=== PATIENT | female | born 1940 | race African-American/Black ===

== ENCOUNTER 2016-11-03 08:41 | Inpatient (IN) ==
[2016-11-03] MEDS ORDERED: FUROSEMIDE 100 MG/10 ML VIAL IV STA (09:05)
[2016-11-03] MEDS ORDERED: cloNIDine 0.1 MG TABLET PO STA (09:05)
[2016-11-03] MEDS ORDERED: cloNIDine 0.1 MG TABLET ONE ×2 (09:20→09:27)
[2016-11-03] MEDS ORDERED: FUROSEMIDE 40 MG/4 ML VIAL ONE (09:20)
[2016-11-03 09:33] LABS: Basophils % 0.4 % (0.0-0.8); Eosinophils # 0.1 10*3/uL (0.0-0.87); Eosinophils % 1.5 % (0.00-10.9); Hemoglobin 12.9 GM/DL (12.0-16.0); Immature Granulocytes % 0.2 %; Immature Granulocytes Absolute 0.02 #; Lymphocytes # 2.2 10*3/uL (1.4-4.0); Lymphocytes % 26.8 % (21.3-54.2); Mean Corpuscular HGB Conc 32.3 GM/DL (32-36); Mean Corpuscular Hemoglobin 29 PG (27-34); Mean Corpuscular Volume 88.9 FL (87-102); Monocytes # 0.7 10*3/uL (0.11-0.8); Monocytes % 8.4 % (1.7-12.7); Neutrophils # 5.2 10*3/uL (1.4-7.4); Neutrophils % 62.7 % (38.7-73.9); Platelet Count 309 T/CUMM (130-400); Red Cell Distribution Width 15.4 % (9.3-17.3); White Blood Count 8.3 T/CUMM (4-12)
[2016-11-03 10:01] LABS: Albumin 3.9 G/DL (3.4-5.0); Bilirubin,Total 1.2 MG/DL (0.2-1.0); Calcium 10.1 MG/DL (8.5-10.1); Magnesium 2.3 MG/DL (1.8-2.4); Osmolality,Calculated 279.3 MOS/KG (273-304); Potassium 4.4 MMOL/L (3.5-5.1); Total Protein 7.2 G/DL (6.4-8.3); Troponin I Only 0.03 NG/ML (0.00-0.045)
--- NOTE | 2016-11-03 10:37 | Emergency Department Note ---
Hellen Sosa Hilary, am scribing for, and in the presence of, Fitz Morfin MD 09:13. Navjot Sosa Phillip K, MD, personally performed the services described in this documentation, ascribed by Iris Macedo in my presence, and it is both accurate and complete 036 . Arrival - Arrival Chief Complaint: Shortness of Breath Stated Complaint: sob,chest pain ED Nursing Triage Note: Pt c/o SOB x 3 days. Pt's daughter reports pt has not taken her regular medications in a year. Mode of Arrival: Wheelchair Limitations: No Limitations Source: Patient, RN Notes Reviewed Time Seen by Provider: 11/03/16 08:57 - History of Present Illness HPI Narrative: Pt is a 76 y/o female presenting to the ED with c/o SOB and chest pains which onset 3 days ago. Pt states that it is worse when she is laying down but still hurts when she is sitting up. She confirms chest pain, SOB, cough but denies fever, abdominal pain, vomiting, and diaphoresis. Pts daughter says she has not been taking her medication for a year. Onset (ago): day(s) Consistency: constant Quality: sharp Allergies/Adverse Reactions: Allergies Allergy/AdvReac Type Severity Reaction Status Date / Time No Known Allergies Allergy Unverified 08/10/15 01:42 Home Medications: Home Medications Medication Instructions Recorded Confirmed Type Aspirin EC Tab 81 mg PO DAILY tablet 07/20/15 11/03/16 Rx Amiodarone Tab [Cordarone Tab] 200 mg PO DAILY #30 tablet 08/11/15 11/03/16 Rx Apixaban [Eliquis] 5 mg PO BID #60 tablet 08/11/15 11/03/16 Rx Atorvastatin [Lipitor] 80 mg PO BEDTIME #60 tablet 08/11/15 11/03/16 Rx Losartan [Cozaar] 25 mg PO DAILY #60 tablet 08/11/15 11/03/16 Rx Omeprazole 20 mg PO DAILY #30 capsule 08/11/15 11/03/16 Rx Spironolactone [Aldactone] 12.5 mg PO DAILY #30 tablet 08/11/15 11/03/16 Rx Carvedilol [Coreg] 6.25 mg PO BID 11/03/16 11/03/16 History Furosemide Tab [Lasix Tab] 20 mg PO DAILY 11/03/16 11/03/16 History Lisinopril 2.5 mg PO DAILY 11/03/16 11/03/16 History Potassium Chloride 10 meq PO DAILY 11/03/16 11/03/16 History Review of System - Review of System 12 point system: reviewed and no additional remarkable complaints except as stated - Review of System Constitutional: Absent: diaphoresis, fever Respiratory: Present: cough Cardiovascular: Present: chest pain Gastrointestinal: Absent: abdominal pain, nausea, vomiting Musculoskeletal: Present: leg pain (Lower leg swelling) Medical,Surgical,& Family Hx - Medical History Cardio: History of: CHF, Hypertension, PVD (DVT LEFT LEG), Cardiovascular Problems (CHF) Neurology: History of: Cerebrovascular Accident No history of: Brain Aneurysm, Cerebral Hemorrhage, Cerebral Palsy, Parkinson 's Disease, Peripheral Neuropathy, Seizures, TIA, Vertigo HEENT: History of: Dental Problems (dentures upper) No history of: Eye Problem, Glaucoma Endocrine: No history of: Diabetes Mellitus (NIDDM) Rheumatology: No history of;: Gout, Rheumatoid Arthritis, Rheumatological Problems Renal: History of: Renal Failure Gastrointestinal: No history of: Gastrointestinal Bleed, Hemorrhoids, Hepatitis, Liver Problems , Pancreatitis, Ulcerative Colitis, Gastrointestinal Cancer, GI Problems Musculoskeletal: No history of: Back/Neck Problems, Degenerative Disk Disease Hematology: History of: Clotting Problems (left leg DVT (2 yrs ago)) Reproductive: History of: Breast Cancer (left) No history of: Ectopic - Surgical History Cardiac Surgeries: Patient Denies: Cardiac Surgery, Vascular Access Devices Neurologic Surgeries: Patient denies: Brain Aneurysm, Cerebral Hemorrhage, Neurologic Surgery HEENT Surgeries: Patient denies: Eye Surgery, Tonsilectomy & Adenoidectomy Abdominal Surgeries: Surgical HX of: Cholecystectomy Patient denies: Abdominal Surgery, Appendectomy, Colonoscopy, Gastric Bypass Surgery Reproductive Surgeries: Surgical HX of;: Breast Surgery (left mastectomy) Patient denies;: Hysterectomy, Tubal Ligation Orthopedic Surgeries: Patient denies;: Implanted Devices - Family History Family History: Reports;: Family Cancer (DAUGHTER-PANCREATIC CA AUNT- OVARIAN CA ), Family Heart Disease, Family Hypertension, Family Stroke (GRANDMOTHER) Denies;: Family Diabetes - Social History Smoking Status: Never smoker Exam Vital Signs: Vital Signs Temperature 97.7 F 11/03/16 08:55 Pulse Rate 79 11/03/16 08:55 Respiratory Rate 18 11/03/16 08:55 Blood Pressure 142/102 11/03/16 08:55 O2 Sat by Pulse Oximetry 96 11/03/16 08:49 - General General appearance: alert, in no apparent distress - Head Head exam: Present: atraumatic, normocephalic - Eye Eye exam: Present: normal appearance, PERRL, EOMI - ENT ENT exam: Present: mucous membranes moist, TM's normal bilaterally - Neck Neck exam: Present: full ROM, trachea midline. Absent: tenderness - Chest Chest inspection: Present: symmetric chest wall rise. Absent: tenderness - Respiratory Respiratory exam: Present: rales (Decreased breath sounds in right base) - Cardiovascular Cardiovascular exam: Present: regular rate, normal rhythm, gallop, +S3. Absent : murmur - Abdominal Exam Abdominal exam: Present: soft. Absent: distention, tenderness - Extremities Exam Extremities exam: Present: full ROM, pedal edema. Absent: tenderness - Back Exam Back exam: Present: full ROM. Absent: tenderness - Neurological Exam Neurological exam: Present: alert, oriented X3, CN II-XII intact. Absent: motor sensory deficit - Psychiatric Psychiatric exam: Present: normal affect, normal mood - Skin Skin exam: Present: warm, dry, intact, normal color. Absent: rash Course Course Narrative: Patient discussed with the hospitalist. Results - Labs CBC & BMP: 11/03/16 09:26 11/03/16 09:26 Lab Results: I have reviewed the patients labs (BNP is 1229) - EKG EKG results: interpreted by ANANT, sinus rhythm (left bundle branch block with frequent PVCs) - Diagnostic Findings Procedure: Chest x-ray: image reviewed by me (congestive heart failure with pleural effusions) Disposition Clinical Impression: CHF (congestive heart failure), Hypertension Case discussed with: patient, patient's family Disposition: Still a Patient Condition: Guarded Additional Instructions: Admit for cardiac evaluation and fluid offloading.
--- NOTE | 2016-11-03 10:48 | EKG Report ---
Stationary ECG Study [facility] ER Test Date: 11/03/2016 8:57:36 AM Pat Name: KACEY LUNDY Department: Room: Gender: F Claim Technician: ANGY Rollins : 1940 Requested by: Fitz Pacheco Order Number: [id number] Reading MD: DEBORAH QUIROS Intervals [place] Rate: 79 P: 73 NC: 211 QRS: -62 QRSD: 144 T: 93 QT: 417 QTc: 452 Interpretive Statements SINUS RHYTHM WITH FIRST-DEGREE A-V B WITH FREQUENT VENTRICULAR PREMATURE COMPLEXES at 79 bpm POSSIBLE LEFT ATRIAL ENLARGEMENT MARKED LEFT AXIS DEVIATION LEFT BUNDLE BRANCH BLOCK Electronically Signed On 11-06-16 16:48:25 CDT by DEBORAH QUIROS [email or web address]
--- NOTE | 2016-11-03 12:00 | XRay Report ---
XR chest 1V portable Indication: Shortness of breath Comparison: 11 August 2015 Findings: The heart and mediastinum are stable in size and configuration. The pulmonary vascularity is increased with bilateral increased interstitial lung density. No other lung infiltrates, effusions, pneumothorax or other abnormality is demonstrated. Impression: Findings suggest cardiac decompensation. PROCEDURE INTERPRETED AT [facility] DEPARTMENT OF RADIOLOGY Final Report Signed by: Dr. Noel Blanco
--- NOTE | 2016-11-03 12:14 | Hospitalist History & Physical ---
<Mary Miller - Last Filed: 11/03/16 12:30> Assessment and Plan (1) CHF (congestive heart failure) Status: Acute Assessment and plan: We will admit. Will obtain Echo, carotid and venous dopplers, lipid panel, thyroid panel, and HgA1C. Will obtain serial cardiac enzymes; may consult cardiology if positive. Current Visit: Yes (2) Hypertension Status: Chronic Assessment and plan: We will resume home medications and adjust as needed. Current Visit: Yes (3) Dyspnea Status: Acute Assessment and plan: We will gently diurese. Will obtain BNP and CXR in AM. Current Visit: No (4) Edema of left lower extremity Status: Acute Assessment and plan: Patient has history of deep vein thrombosis and her legs are edematous. We will obtain bilateral venous dopplers. Current Visit: No (5) Medical non-compliance Status: Acute Assessment and plan: Financial issues were reported by the daughter as the primary reason for medication non-compliance. Will consult child welfare social worker for assistance. Current Visit: No History of Present Illness Chief complaint: "shortness of breath" History of present illness: This is a very unfortunate 76 year old Female that presented to the ED this AM with a chief compliant of shortness of breath. The patient has a very extensive medical history of hypertension, congestive heart failure, breast cancer, mastectomy, deep vein thrombosis, and morbid obesity. Her daughter is at bedside. She is tearful. She reports that she has had issues with non- compliance. She reports an onset of chest pain and shortness of breath on last night with increased in the severity of symptoms as time progressed. The daughter reported that her mother was relatively healthy until the of her brother in 2012. She reports that her mother basically "gave up" and stopped taking interest in her health. In addition, the daughter reports the inability to pay for her medications as another factor that attributed to her mother's medical non-compliance. She reports that her mother just "sits in her room all day and eat snacks". She is very concerned about her mother's health. At the time of presentation, labs were obtained her BNP was grossly elevated ay 1229. Chest radiograph revealed congestive heart failure with pleural effusions. After brief discussion with Dr. Morfin and Dr. Ware, the patient will be admitted under the hospitalist services for continuation of care. Home Medications Medication Instructions Recorded Confirmed Type Aspirin EC Tab 81 mg PO DAILY tablet 07/20/15 11/03/16 Rx Amiodarone Tab [Cordarone Tab] 200 mg PO DAILY #30 tablet 08/11/15 11/03/16 Rx Apixaban [Eliquis] 5 mg PO BID #60 tablet 08/11/15 11/03/16 Rx Atorvastatin [Lipitor] 80 mg PO BEDTIME #60 tablet 08/11/15 11/03/16 Rx Losartan [Cozaar] 25 mg PO DAILY #60 tablet 08/11/15 11/03/16 Rx Omeprazole 20 mg PO DAILY #30 capsule 08/11/15 11/03/16 Rx Spironolactone [Aldactone] 12.5 mg PO DAILY #30 tablet 08/11/15 11/03/16 Rx Carvedilol [Coreg] 6.25 mg PO BID 11/03/16 11/03/16 History Furosemide Tab [Lasix Tab] 20 mg PO DAILY 11/03/16 11/03/16 History Lisinopril 2.5 mg PO DAILY 11/03/16 11/03/16 History Potassium Chloride 10 meq PO DAILY 11/03/16 11/03/16 History Allergies Allergy/AdvReac Type Severity Reaction Status Date / Time No Known Allergies Allergy Unverified 08/10/15 01:42 Medical,Surgical,& Family Hx - Medical History Cardio: History of: CHF, Hypertension, PVD (DVT LEFT LEG), Cardiovascular Problems (CHF) Neurology: History of: Cerebrovascular Accident No history of: Brain Aneurysm, Cerebral Hemorrhage, Cerebral Palsy, Parkinson 's Disease, Peripheral Neuropathy, Seizures, TIA, Vertigo HEENT: History of: Dental Problems (dentures upper) No history of: Eye Problem, Glaucoma Endocrine: No history of: Diabetes Mellitus (NIDDM) Rheumatology: No history of;: Gout, Rheumatoid Arthritis, Rheumatological Problems Renal: History of: Renal Failure Gastrointestinal: No history of: Gastrointestinal Bleed, Hemorrhoids, Hepatitis, Liver Problems , Pancreatitis, Ulcerative Colitis, Gastrointestinal Cancer, GI Problems Musculoskeletal: No history of: Back/Neck Problems, Degenerative Disk Disease Hematology: History of: Clotting Problems (left leg DVT (2 yrs ago)) Reproductive: History of: Breast Cancer (left) No history of: Ectopic - Surgical History Cardiac Surgeries: Patient Denies: Cardiac Surgery, Vascular Access Devices Neurologic Surgeries: Patient denies: Brain Aneurysm, Cerebral Hemorrhage, Neurologic Surgery HEENT Surgeries: Patient denies: Eye Surgery, Tonsilectomy & Adenoidectomy Abdominal Surgeries: Surgical HX of: Cholecystectomy Patient denies: Abdominal Surgery, Appendectomy, Colonoscopy, Gastric Bypass Surgery Reproductive Surgeries: Surgical HX of;: Breast Surgery (left mastectomy) Patient denies;: Hysterectomy, Tubal Ligation Orthopedic Surgeries: Patient denies;: Implanted Devices - Family History Family History: Reports;: Family Cancer (DAUGHTER-PANCREATIC CA AUNT- OVARIAN CA ), Family Heart Disease, Family Hypertension, Family Stroke (GRANDMOTHER) Denies;: Family Diabetes - Social History Smoking Status: Never smoker 12 point system: reviewed and no additional remarkable complaints except as stated Exam - Constitutional Vitals: Period Temp Pulse Resp BP Sys/Rangel Pulse Ox Last 24 Hr 97.7 F-97.7 F 79-79 18-18 142-142/102-102 96 General appearance: mild distress, over weight - Head Head exam: Present: normal inspection, normocephalic, atraumatic - Eye Eye exam: Present: EOMI. Absent: conjunctival injection, nystagmus, periorbital swelling Pupils: Present: JORGE, normal accommodation - ENT ENT exam: Present: normal exam, normal external ear exam, normal oropharynx - Neck Neck exam: Present: normal inspection. Absent: lymphadenopathy, meningismus, tenderness, thyromegaly - Respiratory Respiratory exam: Present: accessory muscle use, decreased breath sounds - Cardiovascular Cardiovascular exam: Present: other (left bundle branch block with frequent PVCs ) - GI/Abdominal GI/Abdominal exam: Present: normal bowel sounds, soft. Absent: firm, mass - Extremities Exam Extremities exam: Present: normal inspection, normal capillary refill, full ROM , edema (+3 edema to left lower extremety) - Back Exam Back exam: Present: normal inspection - Neurological Exam Neurological exam: Present: alert, oriented X3, CN II-XII intact - Psychiatric Psychiatric exam: Present: flat affect - Skin Skin exam: Present: normal color, warm, dry Results - Labs CBC & BMP: 11/03/16 09:26 11/03/16 09:26 Lab Results: I have reviewed the past 24 hour labs Quality Measures - VTE Deep Vein Thrombosis/Pulmonary Embolism Present on Admission: No Contraindication to Pharmacological VTE Prophylaxis: Already on Theraputic Agent , No Prophylaxis Needed <Jamar Ware - Last Filed: 11/03/16 15:40> Assessment and Plan (1) Acute on chronic systolic CHF (congestive heart failure) Status: Acute Assessment and plan: Impression: 1. Probable acute on chronic systolic congestive heart failure Plan: Resume medications. She will need IV diuretics to start with. We will get a repeat echocardiogram. She will need an TY inhibitor, and we can consider adding a beta-amelia plus spironolactone at a later date. This note was completed using [employer] voice recognition software. There may be engineer design and construction errors as a result. Current Visit: No History of Present Illness History of present illness: Ms. Herr is a 76 year old female History is obtained from the patient. There is a long history of hypertension. The patient apparently lived in [place] up until about 4 years ago, when family of their . At that time, the [place] with her daughter, son-in-law, and some grandchildren. She tells me that she has been told that she has a "enlarged heart," but there is no prior history of myocardial infarction or stroke as far she knows. She reports no other significant medical problems. She specifically reports no diabetes. There is no history of liver disease or kidney disease. She is undergone a left-sided mastectomy in the past. She reports that she saw a physician here a year or so ago, and got her medications refilled, but has not been back. She was hospitalized here couple of years ago. At that time, an echocardiogram was performed, and showed ejection fraction of 15%. She presented this time for evaluation of worsening dyspnea both with exertion and at rest. She has had some occasional chest discomfort associated with the dyspnea. Exam - Constitutional Vitals: Period Temp Pulse Resp BP Sys/Rangel Pulse Ox Last 24 Hr 97.1 F 57 20 112/84 96 Jugular venous distention is noted seated. Heart is regular with frequent skips. I do not hear a gallop. She has decreased breath sounds in both bases. There may be a millimeter or 2 pretibial edema. Results - Labs CBC & BMP: 11/03/16 09:26 11/03/16 09:26
[2016-11-03] MEDS: PANTOPRAZOLE 40 MG TABLET PO SCH (13:55)
[2016-11-03] MEDS: APIXABAN 5 MG TABLET PO SCH (21:44)
[2016-11-03] MEDS: ATORVASTATIN 80 MG TABLET PO SCH (21:45)
[2016-11-03] MEDS: CARVEDILOL 6.25 MG TABLET PO SCH (21:45)
[2016-11-04] MEDS: ASPIRIN EC 81 MG TABLET PO SCH (08:44)
[2016-11-04] MEDS: SPIRONOLACTONE 25 MG TABLET PO SCH (08:44)
[2016-11-04] MEDS: LISINOPRIL 2.5 MG TABLET PO SCH (08:45)
[2016-11-04] MEDS: POTASSIUM CHLORIDE 10 MEQ TABLET PO SCH (08:46)
[2016-11-04] MEDS: AMIODARONE 200 MG TABLET PO SCH (08:46)
[2016-11-04] MEDS: CARVEDILOL 6.25 MG TABLET PO SCH ×2 (08:46→20:59)
[2016-11-04] MEDS: APIXABAN 5 MG TABLET PO SCH ×2 (08:47→20:59)
[2016-11-04] MEDS: PANTOPRAZOLE 40 MG TABLET PO SCH (08:47)
[2016-11-04] MEDS ORDERED: FUROSEMIDE 20 MG TABLET PO SCH (09:00)
[2016-11-04] MEDS ORDERED: LOSARTAN 25 MG TABLET PO SCH (09:00)
--- NOTE | 2016-11-04 13:48 | Hospitalist Progress Note ---
Assessment and Plan - Time spent with patient Time spent with patient: Greater than 30 minutes (I reviewed pt's lab results and CXR report and image today. I discussed with pt and RN in regarding her clinical status today.) (1) Acute on chronic systolic CHF (congestive heart failure) Status: Acute Assessment and plan: Echo today. Continue Beta amelia, ACEI and spironolactone. Switch to IV lasix today. Monitor daily weight and I&O. Current Visit: No (2) Edema of left lower extremity Status: Acute Assessment and plan: US to r/o DVT today. Current Visit: No (3) Hypertension Status: Chronic Assessment and plan: Continue current medical treatment regimen Current Visit: Yes (4) Medical non-compliance Status: Acute Assessment and plan: Hope can put pt on $4 generic medication list due to her financial status. Current Visit: No Hospitalist: Subjective Interval history: No overnight acute event. SOB better. No other major discomfort complaints. Deny fever, chest pain, N/V/D, cough, abd pain, dysuria or rash. Interval history: Pt is a 76yo AAF with a very extensive medical history of hypertension, congestive heart failure, breast cancer, mastectomy, deep vein thrombosis, and morbid obesity and non-compliant with medications due to financial reason adm to our hospital on 11/03/16 due to dyspnea 2/2 to Acute on chronic CHF. Exam - Constitutional Vitals: Period Temp Pulse Resp BP Sys/Rangel Pulse Ox Last 24 Hr 96.5 F-97.5 F 62-79 18-20 123-148/59-82 94-98 Exam: GENERAL: NAD, AAOx3. HEENT: Pupils equally round and reactive to light, conjunctivae clear. TMs goel and translucent. Oropharynx pink, with moist mucous membranes. Normal lips, teeth and gums. NECK: Supple without mass. HEART: RRR, no murmur. CHEST: Normal shape, fair air movement, no retractions. CV: RRR, no murmurs, 2+ peripheral pulses LUNGS: Decreased breath sound bilaterally. ABDOMEN: Soft, nontender, and no hepatosplenomegaly. SKIN: No rash. Edema on b/l legs. NEURO: No gross motor deficits noted. Results - Labs CBC & BMP: 11/03/16 09:26 11/03/16 09:26 Quality Measures - VTE Deep Vein Thrombosis/Pulmonary Embolism Present on Admission: No Contraindication to Pharmacological VTE Prophylaxis: Already on Theraputic Agent , No Prophylaxis Needed
--- NOTE | 2016-11-04 14:35 | Ultrasound Report ---
Exam: Left lower extremity venous Doppler/duplex ultrasound Comparison: 07/18/2015 Clinical history: Shortness of breath, DVT Technique: Duplex scan of the left lower extremity veins using th B- mode/grayscale imaging and Dopplers spectral analysis and color flow. Findings: There is normal compression and augmentation of the left common and popliteal veins. The proximal left greater saphenous veins appear to be patent. Major venous structures of the left lower extremity demonstrating normal course and caliber with normal color-flow study and spectral analysis except for the left superficial femoral vein where there is persistent occluding thrombus.. Impression: Persistent occluding thrombus in the left superficial femoral vein. At least some of these findings may be chronic but it is difficult to exclude recurrent DVT with these findings. Technologist discussed this finding with the patient's nurse Destinee at 2:22 PM on 11/04/2016. Critical test results Ultrasound images were captured and stored. PROCEDURE INTERPRETED AT [facility] DEPARTMENT OF RADIOLOGY Final Report Signed by: Dr. Chata Evans
[2016-11-04] MEDS: FUROSEMIDE 40 MG/4 ML VIAL IV SCH (16:00)
--- NOTE | 2016-11-04 18:19 | ECHO Report ---
Herlinda Herr Exam Date: 11/04/2016 13:57 Referring Physician: Technologist: Niurka Dobbins LRJOSE GUADALUPE Age: 76 Ht (in): 66 Wt (lb): 220 Gender: F Exam Location: [facility] Echo Indications: A fib, HTN, dyspnea, CHF, edema, Leg DVT BP: 148 / 82 HR: 71 Rhythm: bradycardia Technical Quality: IMPRESSIONS 3+ left atrial enlargement 2+ left ventricular enlargement Moderate to severely reduced LV systolic function with septal dyskinesis and ejection fraction estimated 25-30% Aortic sclerosis without stenosis 1+ mitral regurgitation 2-3+ tricuspid regurgitation with RVSP 30 mmHg plus RAP Probable mild sinus bradycardia noted MEASUREMENTS (Male / Female) Normal Values 2D ECHO LV Diastolic Diameter PLAX 6.0 cm 4.2 - 5.9 / 3.9 - 5.3 cm LV Systolic Diameter PLAX 5.6 cm LV Fractional Shortening PLAX 5.7 % IVS Diastolic Thickness 2.1 cm 0.6 - 1.0 / 0.6 - 0.9 cm LVPW Diastolic Thickness 1.4 cm 0.6 - 1.0 / 0.6 - 0.9 cm RV Internal Dim ED PLAX 3.1 cm Aortic Root Diameter 3.2 cm LA Systolic Diameter LX 5.6 cm 3.0 - 4.0 / 2.7 - 3.8 cm DOPPLER TR Peak Velocity 273.0 cm/s TR Peak Gradient 29.8 mmHg FINDINGS Left Ventricle Severely increased septal wall thickness. Moderately increased posterior wall thickness. Moderately increased left ventricular diastolic diameter. Moderately decreased left ventricular systolic function, left ventricular ejection fraction is estimated at 10-15%. Right Ventricle Moderately increased right ventricular size. Right Atrium Moderately increased right atrial size. Left Atrium Severely increased left atrial diameter. Mitral Valve Moderate mitral annular calcification. Aortic Valve Mild aortic valve sclerosis. Tricuspid Valve Morphologically normal tricuspid valve. Moderate tricuspid valve regurgitation. Tricuspid regurgitation velocities suggest a PAP of 29.8 mmHg + RAP. Pulmonic Valve Morphologically normal pulmonic valve. Mild pulmonary valve regurgitation. Pericardium No pericardial effusion. Aorta Normal size aortic root and proximal ascending aorta. Efrain Jorge (Electronically Signed) Final Date: 04 November 2016 18:17
[2016-11-04] MEDS: ATORVASTATIN 80 MG TABLET PO SCH (20:58)
[2016-11-05 04:54] LABS: Basophils # 0.1 10*3/uL (0.0-0.2); Basophils % 0.7 % (0.0-0.8); Eosinophils # 0.2 10*3/uL (0.0-0.87); Eosinophils % 2.2 % (0.00-10.9); Hematocrit 38.9 VOL% (35.7-47.0); Hemoglobin 12.5 GM/DL (12.0-16.0); Immature Granulocytes % 0.3 %; Immature Granulocytes Absolute 0.02 #; Lymphocytes # 2.4 10*3/uL (1.4-4.0); Lymphocytes % 33.1 % (21.3-54.2); Mean Corpuscular HGB Conc 32.1 GM/DL (32-36); Mean Corpuscular Hemoglobin 29 PG (27-34); Mean Corpuscular Volume 88.8 FL (87-102); Mean Platelet Volume 10.9 FL (9.6-12.0); Monocytes # 0.7 10*3/uL (0.11-0.8); Monocytes % 10.4 % (1.7-12.7); Neutrophils # 3.8 10*3/uL (1.4-7.4); Neutrophils % 53.3 % (38.7-73.9); Platelet Count 287 T/CUMM (130-400); Red Blood Count 4.38 MC/CUMM (3.8-5.5); White Blood Count 7.1 T/CUMM (4-12)
[2016-11-05 05:15] LABS: Calcium 9.6 MG/DL (8.5-10.1); Magnesium 2.4 MG/DL (1.8-2.4); Osmolality,Calculated 287.8 MOS/KG (273-304); Potassium 4.1 MMOL/L (3.5-5.1)
[2016-11-05] MEDS: PANTOPRAZOLE 40 MG TABLET PO SCH (09:54)
[2016-11-05] MEDS: AMIODARONE 200 MG TABLET PO SCH (09:54)
[2016-11-05] MEDS: LISINOPRIL 2.5 MG TABLET PO SCH (09:54)
[2016-11-05] MEDS: SPIRONOLACTONE 25 MG TABLET PO SCH (09:54)
[2016-11-05] MEDS: POTASSIUM CHLORIDE 10 MEQ TABLET PO SCH (09:55)
[2016-11-05] MEDS: ASPIRIN EC 81 MG TABLET PO SCH (09:55)
[2016-11-05] MEDS: CARVEDILOL 6.25 MG TABLET PO SCH ×2 (09:55→21:00)
[2016-11-05] MEDS: APIXABAN 5 MG TABLET PO SCH (09:55)
[2016-11-05] MEDS: FUROSEMIDE 40 MG/4 ML VIAL IV SCH (09:58)
--- NOTE | 2016-11-05 10:32 | XRay Report ---
XR chest 2V Indication: Congestive heart failure Comparison: 03 November 2016 Findings: The heart and mediastinum are stable in size and configuration. The pulmonary vascularity is decreased with decreased interstitial lung density. No other lung infiltrates, effusions, pneumothorax or other abnormality is demonstrated. Impression: Findings suggest improving cardiac decompensation. PROCEDURE INTERPRETED AT [facility] DEPARTMENT OF RADIOLOGY Final Report Signed by: Dr. Noel Blanco
--- NOTE | 2016-11-05 11:36 | Hospitalist Progress Note ---
Assessment and Plan - Time spent with patient Time spent with patient: Greater than 30 minutes (1) Acute on chronic systolic CHF (congestive heart failure) Status: Acute Assessment and plan: Echo EF 10-15%. Continue Beta amelia, ACEI and spironolactone. Switch to IV lasix today. Monitor daily weight and I&O. Consult Cardiology today, need lifevest. Current Visit: No (2) Edema of left lower extremity Status: Acute Assessment and plan: DVT on US, on eliquis Current Visit: No (3) Hypertension Status: Chronic Assessment and plan: Continue current medical treatment regimen Current Visit: Yes (4) Medical non-compliance Status: Acute Assessment and plan: Hope can put pt on $4 generic medication list due to her financial status. Current Visit: No Hospitalist: Subjective Interval history: SOB continue to improve. CXR showed pulm congestion improving. Can walk in the room. Echo EF 10-15%, will consult Cards, Cr 1.3 today, will switch lasix to PO , monitor Cr level in am. Interval history: Pt is a 76yo AAF adm to our hospital due to dyspnea 2/2 acute on chronic systolic CHF and DVT. Not compliant with her home meds. Echo showed significantly decreased EF and atrial and ventricle enlargement. Resp symptoms improved since adm while on IV lasix but Cr increased to 1.3, On eliquis Exam - Constitutional Vitals: Period Temp Pulse Resp BP Sys/Rangel Pulse Ox Last 24 Hr 96.1 F-97.4 F 18-71 18-20 108-148/61-82 91-96 Exam: GENERAL: NAD, AAOx3. HEENT: Pupils equally round and reactive to light, conjunctivae clear. TMs goel and translucent. Oropharynx pink, with moist mucous membranes. Normal lips, teeth and gums. NECK: Supple without mass. HEART: RRR, no murmur. CHEST: Normal shape, fair air movement, no retractions. CV: RRR, no murmurs, 2+ peripheral pulses LUNGS: Decreased breath sound bilaterally at lower lobes. ABDOMEN: Soft, nontender, and no hepatosplenomegaly. SKIN: No rash. Edema on b/l legs. NEURO: No gross motor deficits noted. Results - Labs CBC & BMP: 11/05/16 04:12 11/05/16 04:12 Quality Measures - VTE Deep Vein Thrombosis/Pulmonary Embolism Present on Admission: No Contraindication to Pharmacological VTE Prophylaxis: Already on Theraputic Agent , No Prophylaxis Needed
--- NOTE | 2016-11-05 15:45 | Cardiology Consult Note ---
IYassine April RN, am scribing for, and in the presence of, Efrain Jorge MD 15:40. Assessment and Plan - Time spent with patient Time spent with patient: Greater than 30 minutes (Due to assessment, planning, documentation, medication review) (1) CHF (congestive heart failure) Status: Acute Assessment and plan: 1. 76 year-old overweight BF with hypertension, history of DVT, medical noncompliance, who was admitted June 2015 with heart failure and paroxysmal atrial fibrillation, with increasing dyspnea on exertion and some episodes of chest discomfort with exertion for several months, particularly in the last few weeks, and quit taking her medications approximately June 2016 2. Known cardiomyopathy with EF 20-25% June 2015, noted to be 25-30% on this admission. 3. Dyspnea is much improved she's had no recurrence of her chest pain; she is rule out myocardial infarction 4. She did not take Eliquis for any length of time due to the cost of medicatio after was prescribed approximate 2015 5. Mrs. Herr rarely goes to , and her primary doctor is in [place] although she is apparently been here living with her daughter for over 2 years? 6. I recommend left heart catheterization to define her coronary anatomy is this is ever been done, to see if she needs revascularizations for ischemic cardiomyopathy? She reports she would agree to this but once her daughter to agree to it since her daughter keeps her at her home, and she seems fairly dependent on her. Current Visit: Yes (2) Hypertension Status: Chronic Current Visit: Yes (3) Left leg DVT Status: Chronic Current Visit: No (4) Medical non-compliance Status: Chronic Current Visit: Yes (5) Paroxysmal a-fib Status: Chronic Current Visit: No History of Present Illness - Data of Consult Patient: known to practice within the last 3 years Consult date: 11/05/16 Requesting Physician: Ramu Calvin - Consult Narrative Reason for consult: CHF History of present illness: Ms. Herr is a 76 year old female who was seen by Dr. Dean in the hospital July 18, 2015. She tells me she has not seen a strategic marketing associate since then, nor has she seen one before that. She is a very poor historian and has a hard time describing her symptoms to me. She has a history of CHF, hypertension, paroxysmal atrial fibrillation, left leg DVT, and breast cancer. Surgical history includes left mastectomy and hysterectomy. Family history is positive for father with cancer, daughter with cancer, and mother with heart disease and hypertension. She reports she is a lifetime non-smoker. She states she was in her normal state of health until 3-4 days ago when she began having left-sided chest pain that she describes a tightness. She rates it a 10 on a scale of 1-10 and says that it would last for hours. She denies any alleviators or triggers. She tells me she was short of breath with this pain. But as I question her more, she tells me she was not short of breath sitting up or walking around, only when lying flat. She also tells her that she was having palpitations at the time and thought her heart was going to jump out of her chest. Currently she tells me that her shortness of breath is greatly improved. She denies any chest pain, palpitations, or dizziness. EKG done on the showed sinus rhythm with heart rate of 79. Venous Doppler done yesterday showed persistent occluding thrombus in the left superficial femoral vein that could be chronic. Echo done July 18, 2015 with ejection fraction 20%, ejection fraction by echo done this admission has improved to 25- 30%. It also shows 1+ mitral regurgitation and 2-3+ tricuspid regurgitation. Her vital signs been stable, most recent blood pressure 117/80. She tells me there was a medication that she was prescribed for her heart that she has not been taking because she cannot afford it but she does not know what the medication is. However, she tells me she thinks they are going to start her on that same medicine this time and that she will try to afford it now. CC: Ramu Calvin MD - Home Medications and Allergies Home Medications: Home Medications Medication Instructions Recorded Confirmed Type Aspirin EC Tab 81 mg PO DAILY tablet 07/20/15 11/03/16 Rx Amiodarone Tab [Cordarone Tab] 200 mg PO DAILY #30 tablet 08/11/15 11/03/16 Rx Apixaban [Eliquis] 5 mg PO BID #60 tablet 08/11/15 11/03/16 Rx Atorvastatin [Lipitor] 80 mg PO BEDTIME #60 tablet 08/11/15 11/03/16 Rx Losartan [Cozaar] 25 mg PO DAILY #60 tablet 08/11/15 11/03/16 Rx Omeprazole 20 mg PO DAILY #30 capsule 08/11/15 11/03/16 Rx Spironolactone [Aldactone] 12.5 mg PO DAILY #30 tablet 08/11/15 11/03/16 Rx Carvedilol [Coreg] 6.25 mg PO BID 11/03/16 11/03/16 History Furosemide Tab [Lasix Tab] 20 mg PO DAILY 11/03/16 11/03/16 History Lisinopril 2.5 mg PO DAILY 11/03/16 11/03/16 History Potassium Chloride 10 meq PO DAILY 11/03/16 11/03/16 History Allergies/Adverse Reactions: Allergies Allergy/AdvReac Type Severity Reaction Status Date / Time No Known Allergies Allergy Unverified 08/10/15 01:42 - Constitutional Constitutional: Present: as per HPI - EENT Eyes: Present: requires corrective lense. Absent: blurry vision Ears: Absent: decreased hearing, tinnitus Nose, mouth and throat: Present: epistaxis, headache(s). Absent: dysphagia, neck pain - Cardiovascular Cardiovascular: Present: chest pain at rest, edema, lightheadedness, orthopnea, palpitations. Absent: diaphoresis, radiating jaw, neck or arm pain - Respiratory Respiratory: Absent: cough, hemoptysis, wheezing - Gastrointestinal Gastrointestinal: Absent: abdominal pain, constipation, diarrhea, hematemesis, hematochezia, melena, nausea, vomiting - Genitourinary Genitourinary: Absent: dysuria, hematuria - Musculoskeletal Musculoskeletal: Present: limited range of motion, muscle weakness - Neurological Neurological: Present: abnormal gait, headache(s). Absent: dizziness, frequent falls, syncope - Psychiatric Psychiatric: Absent: anxiety, depression - Endocrine Endocrine: Present: fatigue - Hematologic/Lymphatic Hematologic/Lymphatic: Absent: easy bleeding, easy bruising Medical,Surgical,& Family Hx - Medical History Cardio: History of: Cardiac Dysrhythmia (Paroxysmal atrial fibrillation), CHF, Hypertension, PVD (DVT LEFT LEG) Neurology: History of: Cerebrovascular Accident HEENT: History of: Dental Problems (dentures upper) Renal: History of: Renal Failure Hematology: History of: Clotting Problems (left leg DVT (2 yrs ago)) Reproductive: History of: Breast Cancer (left) No history of: Ectopic - Surgical History Reproductive Surgeries: Surgical HX of;: Breast Surgery (left mastectomy) - Family History Family History: Reports;: Family Cancer (Father and daughter), Family Heart Disease (Mother), Family Hypertension (Mother), Family Stroke (GRANDMOTHER) - Social History Smoking Status: Never smoker Have you smoked in the last 12 months: No Frequency of Alcohol Use: None Type of Drug Use: None Lives With:: Children Functional capacity: uses cane/walker Physical Examination Vital Signs Temp Pulse Resp BP Pulse Ox 97.7 F 79 18 142/102 96 11/03/16 08:49 11/03/16 08:49 11/03/16 08:49 11/03/16 08:49 11/03/16 08:49 General: Present: Appears Well, No Apparent Distress HEENT: Present: PERRL, Mucus Membranes Moist Neck: Present: Supple Neck, Midline Trachea, JVD/HJR, No Bruit Cardiac: Present: Regular Rhythm Lungs: Present: Decreased Breath Sounds, No Wheeze, Rales, Rhonchi. Absent: Oxygen Neuro: Absent: Resting Tremor, Essential Tremor Abdomen: Present: Soft, Active Bowel Sounds, Non-Tender. Absent: Distended Musculoskeletal: Present: Decreased Range of Motion Extremities: Present: Normal Upper Extr. Pulses, Normal Lower Extr. Pulses, Edema (Bilateral lower extremities) Result/EKG - Labs CBC & BMP: 11/05/16 04:12 11/05/16 04:12 Lab Results: I have reviewed the past 24 hour labs Labs: Laboratory Results - last 24 hr 11/05/16 11/05/16 04:12 04:12 WBC 7.1 RBC 4.38 Hgb 12.5 Hct 38.9 MCV 88.8 MCH 29 MCHC 32.1 RDW 15.0 Plt Count 287 MPV 10.9 Neut % (Auto) 53.3 Lymph % (Auto) 33.1 Perkins % (Auto) 10.4 Eos % (Auto) 2.2 Baso % (Auto) 0.7 Neut # (Auto) 3.8 Lymph # (Auto) 2.4 Perkins # (Auto) 0.7 Eos # (Auto) 0.2 Baso # (Auto) 0.1 Immature Gran % 0.3 Nucleated RBC % 0.0 Immature Gran # 0.02 Nucleated RBCs # 0.00 Sodium 144 Potassium 4.1 Chloride 110 H Carbon Dioxide 25 Anion Gap 13.1 BUN 18 Creatinine 1.30 H GFR Calculation 55 BUN/Creatinine Ratio 13.00 Glucose 91 Calculated Osmolality 287.8 Calcium 9.6 Magnesium 2.4 - EKG EKG results: interpreted by me EKG shows: sinus rhythm Quality Measures - VTE Deep Vein Thrombosis/Pulmonary Embolism Present on Admission: No Contraindication to Pharmacological VTE Prophylaxis: Already on Theraputic Agent , No Prophylaxis Needed Ania Sosa Randall Scott, MD, personally performed the services described in this documentation, ascribed by Mecca Metzger RN in my presence, and it is both accurate and complete 545 .
[2016-11-05] MEDS: ATORVASTATIN 80 MG TABLET PO SCH (21:00)
[2016-11-06 04:15] LABS: Calcium 9.8 MG/DL (8.5-10.1); Magnesium 2.4 MG/DL (1.8-2.4); Osmolality,Calculated 290.7 MOS/KG (273-304); Potassium 4.6 MMOL/L (3.5-5.1)
[2016-11-06] MEDS: SPIRONOLACTONE 25 MG TABLET PO SCH (09:23)
[2016-11-06] MEDS: POTASSIUM CHLORIDE 10 MEQ TABLET PO SCH (09:23)
[2016-11-06] MEDS: PANTOPRAZOLE 40 MG TABLET PO SCH (09:23)
[2016-11-06] MEDS: LISINOPRIL 2.5 MG TABLET PO SCH (09:23)
[2016-11-06] MEDS: AMIODARONE 200 MG TABLET PO SCH (09:23)
[2016-11-06] MEDS: ASPIRIN EC 81 MG TABLET PO SCH (09:23)
[2016-11-06] MEDS: CARVEDILOL 6.25 MG TABLET PO SCH ×2 (09:24→20:49)
--- NOTE | 2016-11-06 11:57 | Hospitalist Progress Note ---
Assessment and Plan (1) CHF (congestive heart failure) Status: Acute Assessment and plan: Echo on noted to be 25-30% on this admission. Agree with Cardiology recommendation for left heart catheterization to assess heart structure and anatomy. Continue current medication regimen as previously ordered. Current Visit: Yes (2) Hypertension Status: Chronic Assessment and plan: We will resume home medications and adjust as needed. Current Visit: Yes (3) Dyspnea Status: Acute Assessment and plan: Improvement in respiratory status since her medications were resumed and we diuresed. Will continue to monitor. Current Visit: No (4) Edema of left lower extremity Status: Acute Assessment and plan: Bilateral venous doppler studies negative; edema may be chronic in nature. Current Visit: No (5) Medical non-compliance Status: Chronic Assessment and plan: Financial issues were reported by the daughter as the primary reason for medication non-compliance. Will consult social worker for assistance. Current Visit: Yes Hospitalist: Subjective Interval history: Patient seen and evaluated. No significant overnight issues reported. Awaiting consent for heart catheterization. Exam - Constitutional Vitals: Period Temp Pulse Resp BP Sys/Rangel Pulse Ox Last 24 Hr 96.1 F-97.0 F 52-71 16-20 99-137/54-81 90-98 General appearance: normal weight, no acute distress - Head Head exam: Present: normal inspection, normocephalic, atraumatic - Eye Eye exam: Present: EOMI. Absent: conjunctival injection Pupils: Present: JORGE, normal accommodation - ENT ENT exam: Present: normal exam - Neck Neck exam: Present: normal inspection. Absent: lymphadenopathy, meningismus, tenderness, thyromegaly - Respiratory Respiratory exam: Present: decreased breath sounds. Absent: rales, rhonchi, stridor, wheezes - Cardiovascular Cardiovascular exam: Present: regular rate and rhythm. Absent: carotid bruit, diastolic murmur, gallop, irregular rhythm, JVD, rubs, systolic murmur - GI/Abdominal GI/Abdominal exam: Present: normal bowel sounds, soft. Absent: ascites, firm, guarding, mass - Extremities Exam Extremities exam: Present: normal inspection, full ROM, edema (trace edema) - Back Exam Back exam: Present: normal inspection - Neurological Exam Neurological exam: Present: alert, oriented X3, CN II-XII intact - Psychiatric Psychiatric exam: Present: normal affect, normal mood - Skin Skin exam: Present: normal color, warm, dry Results - Labs CBC & BMP: 11/05/16 04:12 11/06/16 03:20 Lab Results: I have reviewed the past 24 hour labs Quality Measures - VTE Deep Vein Thrombosis/Pulmonary Embolism Present on Admission: No Contraindication to Pharmacological VTE Prophylaxis: Already on Theraputic Agent , No Prophylaxis Needed
--- NOTE | 2016-11-06 12:48 | Cardiology Progress Note ---
I, Mecca Metzger RN, am scribing for, and in the presence of, Efrain Jorge MD 12:46. Assessment and Plan (1) CHF (congestive heart failure) Status: Acute Assessment and plan: Initial assessment 11/05/2016: 1. 76 year-old overweight BF with hypertension, history of DVT, medical noncompliance, who was admitted June 2015 with heart failure and paroxysmal atrial fibrillation, with increasing dyspnea on exertion and some episodes of chest discomfort with exertion for several months, particularly in the last few weeks, and quit taking her medications approximately June 2016 2. Known cardiomyopathy with EF 20-25% June 2015, noted to be 25-30% on this admission. 3. Dyspnea is much improved she's had no recurrence of her chest pain; she is rule out myocardial infarction 4. She did not take Eliquis for any length of time due to the cost of medicatio after was prescribed approximate 2015 5. Mrs. Herr rarely goes to , and her primary doctor is in [place] although she is apparently been here living with her daughter for over 2 years? 6. I recommend left heart catheterization to define her coronary anatomy is this is ever been done, to see if she needs revascularizations for ischemic cardiomyopathy? She reports she would agree to this but once her daughter to agree to it since her daughter keeps her at her home, and she seems fairly dependent on her. 11/06/2016 up date: 1. Mrs. Herr is hemodynamic stable and improving clinically 2. Given her moderate to severely reduced LV function, I recommend heart catheterization which this afternoon her and her daughter have agreed to. We will schedule at shortly this afternoon. We will perform right groin access. 3. She is been off anticoagulation for many months due to cost issues 4. She is on good heart failure medication I discussed with the patient arrest and benefits of heart catheterization including but not limited to: , stroke, heart attack, vascular damage, reaction to medicine or dye, bleeding requiring blood transfusion, failure the procedure, possible need for planned her emergency heart surgery. I have answered all the patient's questions and the patient is agreeable to proceed. Current Visit: Yes (2) Hypertension Status: Chronic Current Visit: Yes (3) Left leg DVT Status: Chronic Current Visit: No (4) Medical non-compliance Status: Chronic Current Visit: Yes (5) Paroxysmal a-fib Status: Chronic Current Visit: No Cardiology - PN: Subj Interval history: Health And Safety Consultant: Dr. Dean Patient is seen resting in bed in no acute distress. She denies any chest pain , shortness of breath, palpitations, or dizziness. She states she had a good night. We have still not been able to reach her daughter to discuss the heart catheterization with her. She states her daughter should be her later today. Exam (Progress Note) - Constitutional Vitals: Period Temp Pulse Resp BP Sys/Rangel Pulse Ox Last 24 Hr 96.1 F-97.0 F 52-71 16-20 99-137/54-81 90-98 General appearance: no acute distress, morbidly obese - Head Head exam: Absent: abrasion, hematoma - Eye Eye exam: Absent: periorbital swelling, laceration to eyelids - Neck Neck exam: Absent: tenderness - Respiratory Respiratory exam: Present: decreased breath sounds. Absent: accessory muscle use, chest wall tenderness - Cardiovascular Cardiovascular exam: Present: regular rate and rhythm. Absent: rubs - GI/Abdominal GI/Abdominal exam: Present: normal bowel sounds, soft. Absent: distended, tenderness - Extremities Exam Extremities exam: Present: edema (To left lower extremity) - Neurological Exam Neurological exam: Present: alert, oriented X3 - Psychiatric Psychiatric exam: Present: normal affect, normal mood - Skin Skin exam: Present: warm, dry Result/EKG - Labs CBC & BMP: 11/05/16 04:12 11/06/16 03:20 Lab Results: I have reviewed the past 24 hour labs Labs: Laboratory Results - last 24 hr 11/06/16 03:20 Sodium 145 Potassium 4.6 Chloride 112 H Carbon Dioxide 26 Anion Gap 11.6 BUN 20 H Creatinine 1.20 H GFR Calculation 61 BUN/Creatinine Ratio 16.00 Glucose 103 Calculated Osmolality 290.7 Calcium 9.8 Magnesium 2.4 Quality Measures - VTE Deep Vein Thrombosis/Pulmonary Embolism Present on Admission: No Contraindication to Pharmacological VTE Prophylaxis: Already on Theraputic Agent , No Prophylaxis Needed Ania Sosa Randall Scott, MD, personally performed the services described in this documentation, ascribed by Mecca Metzger RN in my presence, and it is both accurate and complete .
[2016-11-06] MEDS ORDERED: DIAZEPAM 5 MG TABLET PO ONE (12:49)
[2016-11-06] MEDS ORDERED: MAGNESIUM SULF RIDER 2 GM in PREMIX 1 EACH IV PRN (12:49)
[2016-11-06] MEDS ORDERED: diphenhydrAMINE CAP 25 MG CAPSULE PO ONE (12:49)
[2016-11-06] MEDS ORDERED: POTASSIUM CHLORIDE RIDER 10 MEQ in PREMIX 1 EACH IV PRN (12:49)
[2016-11-06] MEDS ORDERED: HYDROmorphone 2 MG/1 ML VIAL ONE (15:36)
[2016-11-06] MEDS ORDERED: MIDAZOLAM 2 MG/2 ML VIAL ONE (15:36)
[2016-11-06] MEDS ORDERED: LIDOCAINE 1% 20 ML VIAL ONE (15:40)
[2016-11-06] MEDS ORDERED: ONDANSETRON 4 MG/2 ML VIAL IV PRN (16:03)
[2016-11-06] MEDS ORDERED: HYDROmorphone 2 MG/1 ML VIAL IV PRN (16:03)
[2016-11-06] MEDS ORDERED: NITROGLYCERIN SL 0.4 MG TABLET SL PRN (16:03)
--- NOTE | 2016-11-06 16:12 | Cardiac Catheterization ---
Date of Procedure:: 11/06/16 Post-op diagnosis: same Procedure: Her seizures performed: 1. Left heart catheterization 2. Coronary angiography 3. Left ventriculography 4. Right femoral arterial reclosure with angina device Brief summary: This changes of the 76-year-old BF who presented with heart failure and known severe cardiomyopathy, having not taken her medication for a number of weeks. Heart catheterization is being performed to define her coronary anatomy with revascularization as appropriate. Description of procedure: After obtaining informed consent, the right groin was prepped and draped in the usual sterile fashion. Next a short 6 Romansh sheath was placed in the right femoral artery using a modified Seldinger technique, after the patient received IV sedation and local anesthetic. Next a JL4 catheter was advanced over a guidewire under fluoroscopic guidance, and was engaged to the left coronary artery after which angiography was performed in multiple views. This was then removed over a wire, and a JR4 catheter was advanced in similar fashion was engaged the right coronary artery after which angiography was performed in multiple views. Next a bent pigtail catheter was advanced into the left ventricle, where hemodynamic measurements were obtained, left ventriculography was performed. I was able to visualize the sheath on a "anderson down" shot which showed the sheath was inserted in the right common femoral artery in a vessel suitable for closure. Hemostasis was obtained with Angio-Seal device with no residual bleeding. She was transferred from the label operator in good condition without complication. Coronary angiography: The left main coronary artery is normal developed free of Disease. The LAD is of average caliber there is one long average caliber diagonal, as well as a couple of tiny branches that are due to and D3. The LAD does reach the apex with mild/moderate irregularities only. Circumflex gives off a fairly long average caliber bifurcating OM1, and a thin OM 2 branch. The right coronary is a dominant vessel and is nearly average caliber. It gives off a slightly thinner than average long PDA and a couple of tiny posterolaterals. There mild to moderately irregularities only without any discrete lesions. left ventriculography: Left ventricle appears to be moderately enlarged with severely reduced LV systolic function. Estimated ejection fraction 25% with global hypokinesis. Mitral regurgitation is difficult to assess but appears to be approximately 2+ mitral regurgitation. Impression: 1. Severely reduced LV systolic function with ejection fraction estimated to be 25% with global hypokinesis 2. Approximately 2+ mitral regurgitation and (difficult study) 3. Right dominant system 4. Mild to moderate irregularities noted with no discrete lesions Recommendation discussion: Given these findings is clearly Mr. Herr to has nonischemic cardiomyopathy. She can likely be discharged tomorrow if she has no GUS or complications and her access site. Good medication for cardiomyopathy/heart failure but these will need to be slowly up titrated as an outpatient. Anesthesia: minimal conscious sedation Surgeon / Physician: Efrain Jorge Larry Car Operator: other Estimated blood loss: minimal Specimens: none sent Condition: stable Disposition: floor - Medications / Follow-up
[2016-11-06] MEDS: ATORVASTATIN 80 MG TABLET PO SCH (20:49)
[2016-11-06 22:24] VITALS: BP 104/60
[2016-11-07 05:49] LABS: Basophils % 0.5 % (0.0-0.8); Eosinophils # 0.1 10*3/uL (0.0-0.87); Eosinophils % 1.9 % (0.00-10.9); Hemoglobin 12.3 GM/DL (12.0-16.0); Immature Granulocytes % 0.2 %; Immature Granulocytes Absolute 0.01 #; Lymphocytes # 1.9 10*3/uL (1.4-4.0); Lymphocytes % 29.6 % (21.3-54.2); Mean Corpuscular HGB Conc 30.8 GM/DL (32-36); Mean Corpuscular Hemoglobin 28 PG (27-34); Mean Corpuscular Volume 92.2 FL (87-102); Mean Platelet Volume 11.2 FL (9.6-12.0); Monocytes # 0.5 10*3/uL (0.11-0.8); Monocytes % 7.4 % (1.7-12.7); Neutrophils # 3.9 10*3/uL (1.4-7.4); Neutrophils % 60.4 % (38.7-73.9); Platelet Count 235 T/CUMM (130-400); Red Blood Count 4.34 MC/CUMM (3.8-5.5); Red Cell Distribution Width 15.7 % (9.3-17.3); White Blood Count 6.5 T/CUMM (4-12)
[2016-11-07 06:36] LABS: Calcium 9.5 MG/DL (8.5-10.1); Osmolality,Calculated 280.3 MOS/KG (273-304)
--- NOTE | 2016-11-07 08:13 | EKG Report ---
Stationary ECG Study [facility] Test Date: 11/07/2016 8:13:15 AM Pat Name: KACEY LUNDY Department: Room: 421 Gender: F Probation And Parole Officer: JASE : 1940 Requested by: Efrain Connors Order Number: [id number] Reading MD: SAMANTHA GUTIERRES Intervals [place] Rate: 70 P: 999 MI: 0 QRS: -72 QRSD: 148 T: 104 QT: 447 QTc: 468 Interpretive Statements ATRIAL FIBRILLATION WITH ABERRANT CONDUCTION OR VENTRICULAR PREMATURE COMPLEXES MARKED LEFT AXIS DEVIATION LEFT BUNDLE BRANCH BLOCK Electronically Signed On 11-09-16 12:33:16 CDT by SAMANTHA GUTIERRES [email or web address]
--- NOTE | 2016-11-07 08:57 | Discharge Summary ---
Hospital Course - Hospital Course Hospital Course: This is a very unfortunate 76 year old Female that presented to the ED this AM with a chief compliant of shortness of breath. The patient has a very extensive medical history of hypertension, congestive heart failure, breast cancer, mastectomy, deep vein thrombosis, and morbid obesity. Her daughter was at bedside. She was tearful. She reported that she has had issues with non- compliance. She reported an onset of chest pain and shortness of breath on last night with increased in the severity of symptoms as time progressed. The daughter reported that her mother was relatively healthy until the of her brother in 2012. She reported that her mother basically "gave up" and stopped taking interest in her health. In addition, the daughter reported the inability to pay for her medications as another factor that attributed to her mother's medical non-compliance. She reported that her mother just "sits in her room all day and eat snacks". She was very concerned about her mother's health. At the time of presentation, labs were obtained her BNP was grossly elevated ay 1229. Chest radiograph revealed congestive heart failure with pleural effusions. The patient was admitted under the hospitalist services for continuation of care. The patient was diuresed. Her home medications were adjusted and resumed. Echocardiogram was obtained which revealed an estimated ejection fraction of 25- 30%. On 11/05, she was evaluated by cardiology advised on the need of left heart catheterization for diagnostic evaluation. On yesterday 11/06, she underwent left heart catheterization which suggested severely reduced LV systolic function with ejection fraction estimated to be 25% with global hypokinesis, approximately 2+ mitral regurgitation, right dominant system, and mild to moderate irregularities noted with no discrete lesions. Her condition is stable. We feel that she is appropriate for discharge with follow-up with her PCP and cardiology as indicated. Spoke with daughter and client in great detail on the importance of medical compliance. I have given her daughter medication samples and discount cards for [employer] for home use. - Time spent with patient Time with patient DS: Greater than 30 minutes Diagnosis - Discharge Diagnosis (1) CHF (congestive heart failure) Status: Acute (2) Hypertension Status: Chronic (3) Dyspnea Status: Acute (4) Edema of left lower extremity Status: Acute (5) Medical non-compliance Status: Chronic Discharge Plan - Discharge Medications No Action Aspirin EC Tab 81 mg PO DAILY tablet Spironolactone [Aldactone] 12.5 mg PO DAILY #30 tablet Amiodarone Tab [Cordarone Tab] 200 mg PO DAILY #30 tablet Losartan [Cozaar] 25 mg PO DAILY #60 tablet Apixaban [Eliquis] 5 mg PO BID #60 tablet Atorvastatin [Lipitor] 80 mg PO BEDTIME #60 tablet Omeprazole 20 mg PO DAILY #30 capsule Furosemide Tab [Lasix Tab] 20 mg PO DAILY Potassium Chloride 10 meq PO DAILY Carvedilol [Coreg] 6.25 mg PO BID Lisinopril 2.5 mg PO DAILY - Follow Up or Referral - Forms/Instructions Exam - Constitutional Vitals: Period Temp Pulse Resp BP Sys/Rangel Pulse Ox Last 24 Hr 96.4 F-964 F 54-62 16-22 98-130/20-86 95-100 Discharge Results Procedures and tests throughout hospitalization: Pending Orders 11/06/16 13:32 CL heart Routine Labs on day of discharge: Labs from last 24 hours 11/07/16 11/07/16 05:21 05:21 WBC 6.5 RBC 4.34 Hgb 12.3 Hct 40.0 MCV 92.2 MCH 28 MCHC 30.8 L RDW 15.7 Plt Count 235 MPV 11.2 Neut % (Auto) 60.4 Lymph % (Auto) 29.6 Moore % (Auto) 7.4 Eos % (Auto) 1.9 Baso % (Auto) 0.5 Neut # (Auto) 3.9 Lymph # (Auto) 1.9 [place] # (Auto) 0.5 Eos # (Auto) 0.1 Baso # (Auto) 0.0 Immature Gran % 0.2 Nucleated RBC % 0.0 Immature Gran # 0.01 Nucleated RBCs # 0.00 Sodium 141 Potassium 5.0 Chloride 113 H Carbon Dioxide 19 L Anion Gap 14.0 BUN 16 Creatinine 1.00 GFR Calculation 76 BUN/Creatinine Ratio 16.00 Glucose 82 Calculated Osmolality 280.3 Calcium 9.5 DS: Provider Date of admission: 11/03/16 10:55 Primary care physician: . 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
[2016-11-07] MEDS: ASPIRIN EC 81 MG TABLET PO SCH (09:32)
[2016-11-07] MEDS: SPIRONOLACTONE 25 MG TABLET PO SCH (09:32)
[2016-11-07] MEDS: PANTOPRAZOLE 40 MG TABLET PO SCH (09:33)
[2016-11-07] MEDS: POTASSIUM CHLORIDE 10 MEQ TABLET PO SCH (09:33)
[2016-11-07] MEDS: AMIODARONE 200 MG TABLET PO SCH (09:36)
[2016-11-07] MEDS ORDERED: ENOXAPARIN 40 MG/0.4 ML SYRINGE SUBCUT SCH (10:06)
--- NOTE | 2016-11-07 10:34 | Cardiology Progress Note ---
Assessment and Plan (1) CHF (congestive heart failure) Status: Acute Assessment and plan: Initial assessment 11/05/2016: 1. 76 year-old overweight BF with hypertension, history of DVT, medical noncompliance, who was admitted June 2015 with heart failure and paroxysmal atrial fibrillation, with increasing dyspnea on exertion and some episodes of chest discomfort with exertion for several months, particularly in the last few weeks, and quit taking her medications approximately June 2016 2. Known cardiomyopathy with EF 20-25% June 2015, noted to be 25-30% on this admission. 3. Dyspnea is much improved she's had no recurrence of her chest pain; she is rule out myocardial infarction 4. She did not take Eliquis for any length of time due to the cost of medicatio after was prescribed approximate 2015 5. Mrs. Herr rarely goes to , and her primary doctor is in [place] although she is apparently been here living with her daughter for over 2 years? 6. I recommend left heart catheterization to define her coronary anatomy is this is ever been done, to see if she needs revascularizations for ischemic cardiomyopathy? She reports she would agree to this but once her daughter to agree to it since her daughter keeps her at her home, and she seems fairly dependent on her. 11/06/2016 up date: 1. Mrs. Hrer is hemodynamic stable and improving clinically 2. Given her moderate to severely reduced LV function, I recommend heart catheterization which this afternoon her and her daughter have agreed to. We will schedule at shortly this afternoon. We will perform right groin access. 3. She is been off anticoagulation for many months due to cost issues 4. She is on good heart failure medication I discussed with the patient arrest and benefits of heart catheterization including but not limited to: , stroke, heart attack, vascular damage, reaction to medicine or dye, bleeding requiring blood transfusion, failure the procedure, possible need for planned her emergency heart surgery. I have answered all the patient's questions and the patient is agreeable to proceed. 11/05/2016 update: 1. This Nemesio is doing well clinically, and is hemodynamically stable 2. Heart catheterization yesterday showed no significant coronary artery disease with minimal disease 3. Ejection fraction is a proximal 25%, but she is on good cardiac medications 4. She will likely benefit from up titration of her medications as an outpatient; followed Dr. Wilkins who saw her last admission; ICD could be considered at a later time. 5. She can be discharged from cardiac standpoint 6. History of recurrent medical noncompliance, which is the reason she presented with heart failure; discussed their length on multiple occasions her need to not miss any medications Current Visit: Yes (2) Hypertension Status: Chronic Current Visit: Yes (3) Left leg DVT Status: Chronic Current Visit: No (4) Medical non-compliance Status: Chronic Current Visit: Yes (5) Paroxysmal a-fib Status: Chronic Current Visit: No Cardiology - PN: Subj Interval history: Mrs. Herr is now lying in no acute distress today. She's had no trouble at her groin access her discomfort. She having any chest pain or shortness of breath. She is feeling well and seems to be excited about possibly going home today or so. Exam (Progress Note) - Constitutional Vitals: Period Temp Pulse Resp BP Sys/Rangel Pulse Ox Last 24 Hr 96.4 F-964 F 54-62 16-22 98-130/20-86 95-100 General appearance: no acute distress, morbidly obese - Head Head exam: Present: normal inspection, normocephalic, atraumatic - Respiratory Respiratory exam: Present: clear to auscultation bilaterally. Absent: stridor, wheezes - Cardiovascular Cardiovascular exam: Present: regular rate and rhythm. Absent: diastolic murmur , rubs - GI/Abdominal GI/Abdominal exam: Present: soft. Absent: tenderness - Extremities Exam Extremities exam: Present: edema, other (right groin without tenderness bruit or bleeding or hematoma) - Neurological Exam Neurological exam: Present: alert, oriented X3 Result/EKG - Labs CBC & BMP: 11/07/16 05:21 11/07/16 05:21 Labs: Laboratory Results - last 24 hr 11/07/16 11/07/16 05:21 05:21 WBC 6.5 RBC 4.34 Hgb 12.3 Hct 40.0 MCV 92.2 MCH 28 MCHC 30.8 L RDW 15.7 Plt Count 235 MPV 11.2 Neut % (Auto) 60.4 Lymph % (Auto) 29.6 Hardy % (Auto) 7.4 Eos % (Auto) 1.9 Baso % (Auto) 0.5 Neut # (Auto) 3.9 Lymph # (Auto) 1.9 Hardy # (Auto) 0.5 Eos # (Auto) 0.1 Baso # (Auto) 0.0 Immature Gran % 0.2 Nucleated RBC % 0.0 Immature Gran # 0.01 Nucleated RBCs # 0.00 Sodium 141 Potassium 5.0 Chloride 113 H Carbon Dioxide 19 L Anion Gap 14.0 BUN 16 Creatinine 1.00 GFR Calculation 76 BUN/Creatinine Ratio 16.00 Glucose 82 Calculated Osmolality 280.3 Calcium 9.5 Quality Measures - VTE Deep Vein Thrombosis/Pulmonary Embolism Present on Admission: No Contraindication to Pharmacological VTE Prophylaxis: Already on Theraputic Agent , No Prophylaxis Needed
--- NOTE | 2016-11-07 10:46 | Discharge Summary ---
Hospital Course - Hospital Course Hospital Course: Hospital Course - Hospital Course Hospital Course: This is a very unfortunate 76 year old Female that presented to the ED this AM with a chief compliant of shortness of breath. The patient has a very extensive medical history of hypertension, congestive heart failure, breast cancer, mastectomy, deep vein thrombosis, and morbid obesity. Her daughter was at bedside. She was tearful. She reported that she has had issues with non- compliance. She reported an onset of chest pain and shortness of breath on last night with increased in the severity of symptoms as time progressed. The daughter reported that her mother was relatively healthy until the of her brother in 2012. She reported that her mother basically "gave up" and stopped taking interest in her health. In addition, the daughter reported the inability to pay for her medications as another factor that attributed to her mother's medical non-compliance. She reported that her mother just "sits in her room all day and eat snacks". She was very concerned about her mother's health. At the time of presentation, labs were obtained her BNP was grossly elevated ay 1229. Chest radiograph revealed congestive heart failure with pleural effusions. The patient was admitted under the hospitalist services for continuation of care. The patient was diuresed. Her home medications were adjusted and resumed. Echocardiogram was obtained which revealed an estimated ejection fraction of 25- 30%. On 11/05, she was evaluated by cardiology advised on the need of left heart catheterization for diagnostic evaluation. On yesterday 11/06, she underwent left heart catheterization which suggested severely reduced LV systolic function with ejection fraction estimated to be 25% with global hypokinesis, approximately 2+ mitral regurgitation, right dominant system, and mild to moderate irregularities noted with no discrete lesions. Her condition is stable. We feel that she is appropriate for discharge with follow-up with her PCP and cardiology as indicated. Spoke with daughter and client in great detail on the importance of medical compliance. I have given her daughter medication samples and discount cards for [employer] for home use. - Time spent with patient Time with patient DS: Greater than 30 minutes Diagnosis - Discharge Diagnosis (1) CHF (congestive heart failure) Status: Acute (2) Hypertension Status: Chronic (3) Dyspnea Status: Acute (4) Edema of left lower extremity Status: Acute (5) Medical non-compliance Status: Chronic Discharge Plan - Discharge Medications No Action Aspirin EC Tab 81 mg PO DAILY tablet Spironolactone [Aldactone] 12.5 mg PO DAILY #30 tablet Amiodarone Tab [Cordarone Tab] 200 mg PO DAILY #30 tablet Losartan [Cozaar] 25 mg PO DAILY #60 tablet Apixaban [Eliquis] 5 mg PO BID #60 tablet Atorvastatin [Lipitor] 80 mg PO BEDTIME #60 tablet Omeprazole 20 mg PO DAILY #30 capsule Furosemide Tab [Lasix Tab] 20 mg PO DAILY Potassium Chloride 10 meq PO DAILY Carvedilol [Coreg] 6.25 mg PO BID Lisinopril 2.5 mg PO DAILY - Follow Up or Referral - Forms/Instructions Exam - Constitutional Vitals: Period Temp Pulse Resp BP Sys/Rangel Pulse Ox Last 24 Hr 96.4 F-964 F 54-62 16-22 98-130/20-86 95-100 Discharge Results Procedures and tests throughout hospitalization: Pending Orders 11/06/16 13:32 CL heart Routine Labs on day of discharge: Labs from last 24 hours 11/07/16 11/07/16 05:21 05:21 WBC 6.5 RBC 4.34 Hgb 12.3 Hct 40.0 MCV 92.2 MCH 28 MCHC 30.8 L RDW 15.7 Plt Count 235 MPV 11.2 Neut % (Auto) 60.4 Lymph % (Auto) 29.6 [place] % (Auto) 7.4 Eos % (Auto) 1.9 Baso % (Auto) 0.5 Neut # (Auto) 3.9 Lymph # (Auto) 1.9 [place] # (Auto) 0.5 Eos # (Auto) 0.1 Baso # (Auto) 0.0 Immature Gran % 0.2 Nucleated RBC % 0.0 Immature Gran # 0.01 Nucleated RBCs # 0.00 Sodium 141 Potassium 5.0 Chloride 113 H Carbon Dioxide 19 L Anion Gap 14.0 BUN 16 Creatinine 1.00 GFR Calculation 76 BUN/Creatinine Ratio 16.00 Glucose 82 Calculated Osmolality 280.3 Calcium 9.5 DS: Provider Date of admission: 11/03/16 10:55 Primary care physician: . 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 Consulting Provider: Cardiology - [facility] Consulting Provider Notified: Yes When should Consulting Provider be notified: Now Consult to Specialist Group: Cardiology When should Consulting Provider be notified: Now Person Notified: VAISHALI Date Notified: 11/05/16 Time Notified: 10:04 11/06/16 16:04 Consult to Cardiac Rehabilitation [CONS] Routine Reason for Cardiac Rehabilitation: Appt Out Pt Cardiac Rehab Consult Comment: nonischemic cmp ef 25%; chf Discharging clinician: Mary Miller CNP Discharge Plan - Discharge Data Disposition: Disch To Home/Self Care Condition at Discharge: Stable Discharge Diet: heart healthy Activity: resume usual activities as tolerated Hygiene: keep area(s) dry Weight Bearing at Discharge: weight bear as tolerated Driving: not until seen by doctor Contact your physician if you experience:: fever over 101, Redness or swelling, Shortness of breath - Discharge Medications New Nitroglycerin Sl Tab [Nitrostat] 0.4 mg SL Q5M PRN #30 tablet PRN Reason: Chest Pain Continue Aspirin EC Tab 81 mg PO DAILY tablet Spironolactone [Aldactone] 12.5 mg PO DAILY #30 tablet Amiodarone Tab [Cordarone Tab] 200 mg PO DAILY #30 tablet Losartan [Cozaar] 25 mg PO DAILY #60 tablet Apixaban [Eliquis] 5 mg PO BID #60 tablet Atorvastatin [Lipitor] 80 mg PO BEDTIME #60 tablet Omeprazole 20 mg PO DAILY #30 capsule Furosemide Tab [Lasix Tab] 20 mg PO DAILY Carvedilol [Coreg] 6.25 mg PO BID Discontinued Potassium Chloride 10 meq PO DAILY Lisinopril 2.5 mg PO DAILY - Follow Up or Referral - Forms/Instructions Exam - Constitutional Vitals: Period Temp Pulse Resp BP Sys/Rangel Pulse Ox Last 24 Hr 96.4 F-964 F 54-62 16-22 98-130/20-86 95-100 General appearance: over weight - Head Head exam: Present: normocephalic, atraumatic - Eye Eye exam: Present: EOMI Pupils: Present: JORGE - ENT ENT exam: Present: normal oropharynx - Neck Neck exam: Present: other (Supple neck no thyromegaly midline trachea no adenopathy) - Respiratory Respiratory exam: Present: clear to auscultation bilaterally - Cardiovascular Cardiovascular exam: Present: irregular rhythm, other (Right leg below 100 above 60) - GI/Abdominal GI/Abdominal exam: Present: normal bowel sounds, soft - Extremities Exam Extremities exam: Present: normal inspection - Back Exam Back exam: Present: normal inspection - Neurological Exam Neurological exam: Present: alert, oriented X3, CN II-XII intact - Psychiatric Psychiatric exam: Present: normal affect, normal mood - Skin Skin exam: Present: normal color, warm Discharge Results Procedures and tests throughout hospitalization: Pending Orders 11/06/16 13:32 CL heart Routine Labs on day of discharge: Labs from last 24 hours 11/07/16 11/07/16 05:21 05:21 WBC 6.5 RBC 4.34 Hgb 12.3 Hct 40.0 MCV 92.2 MCH 28 MCHC 30.8 L RDW 15.7 Plt Count 235 MPV 11.2 Neut % (Auto) 60.4 Lymph % (Auto) 29.6 [place] % (Auto) 7.4 Eos % (Auto) 1.9 Baso % (Auto) 0.5 Neut # (Auto) 3.9 Lymph # (Auto) 1.9 [place] # (Auto) 0.5 Eos # (Auto) 0.1 Baso # (Auto) 0.0 Immature Gran % 0.2 Nucleated RBC % 0.0 Immature Gran # 0.01 Nucleated RBCs # 0.00 Sodium 141 Potassium 5.0 Chloride 113 H Carbon Dioxide 19 L Anion Gap 14.0 BUN 16 Creatinine 1.00 GFR Calculation 76 BUN/Creatinine Ratio 16.00 Glucose 82 Calculated Osmolality 280.3 Calcium 9.5 DS: Provider Date of admission: 11/03/16 10:55 Primary care physician: . 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
[2016-11-07] MEDS: LISINOPRIL 2.5 MG TABLET PO SCH (12:54)
[2016-11-07] MEDS: CARVEDILOL 6.25 MG TABLET PO SCH (12:54)
[2016-11-07] MEDS ORDERED: LISINOPRIL 10 MG TABLET PO SCH (21:00)
== END 2016-11-07 13:00 | disposition home or self-care (01) | DRG 287 ==
LOC: N.ED 08:41 → N.EDINP 10:55 → SUATTDRO 10:55 → N.4E 13:00
PROVIDERS: ADMIT Internal Medicine Geriatric Medicine; ATTEND Internal Medicine Infectious Disease
PROC: CLCCHCL (ICD-10-PCS; 2016-11-06 15:15)

== ENCOUNTER 2017-07-14 18:27 | Inpatient (IN) ==
[2017-07-14] MEDS ORDERED: ONDANSETRON 4 MG/2 ML VIAL IV STA (18:55)
[2017-07-14] MEDS ORDERED: NITROGLYCERIN 2% OINT 1 INCH/GM PACK TOP STA (18:55)
[2017-07-14] MEDS ORDERED: FUROSEMIDE 100 MG/10 ML VIAL IV STA (18:55)
[2017-07-14] MEDS ORDERED: MORPHINE 2 MG/1 ML SYRINGE IV STA (18:55)
[2017-07-14] MEDS ORDERED: methylPREDNISolone SOD SUC 125 MG/2 ML VIAL IV STA (18:55)
[2017-07-14] MEDS ORDERED: ASPIRIN EC 325 MG TABLET PO STA (18:58)
[2017-07-14] MEDS ORDERED: ALBUTEROL 2.5 MG/3 ML NEB RESP TX SCH (19:00)
[2017-07-14] MEDS ORDERED: NITROGLYCERIN 2% OINT 1 INCH/GM PACK TOP ONE (19:16)
[2017-07-14] MEDS ORDERED: MORPHINE 2 MG/1 ML SYRINGE ONE (19:17)
[2017-07-14] MEDS ORDERED: ONDANSETRON 4 MG/2 ML VIAL ONE (19:17)
[2017-07-14] MEDS ORDERED: FUROSEMIDE 100 MG/10 ML VIAL ONE (19:17)
[2017-07-14] MEDS ORDERED: methylPREDNISolone SOD SUC 125 MG/2 ML VIAL ONE (19:17)
[2017-07-14] MEDS ORDERED: ASPIRIN 325 MG TABLET ONE (19:17)
[2017-07-14 19:22] LABS: ABG Base Excess -3.7 MMOL/L (-2.5-2.5); ABG HCO3 18.1 MMOL/L (20-26); ABG PCO2 25.1 MM HG (35-48); ABG PH 7.476 (7.35-7.45); ABG TCO2 18.9 MMOL/L (23-27); Allen Test Positive
[2017-07-14 19:22] LABS: Basophils # 0.1 10*3/uL (0.0-0.2); Basophils % 0.5 % (0.0-0.8); Eosinophils % 0.1 % (0.00-10.9); Hematocrit 40.1 VOL% (35.7-47.0); Immature Granulocytes % 0.4 %; Immature Granulocytes Absolute 0.05 #; Lymphocytes % 8.6 % (21.3-54.2); Mean Corpuscular HGB Conc 32.4 GM/DL (32-36); Mean Corpuscular Hemoglobin 29 PG (27-34); Mean Corpuscular Volume 88.5 FL (87-102); Mean Platelet Volume 10.7 FL (9.6-12.0); Monocytes # 0.9 10*3/uL (0.11-0.8); Monocytes % 7.6 % (1.7-12.7); Neutrophils # 9.5 10*3/uL (1.4-7.4); Neutrophils % 82.8 % (38.7-73.9); Platelet Count 311 T/CUMM (130-400); Red Blood Count 4.53 MC/CUMM (3.8-5.5); Red Cell Distribution Width 16.1 % (9.3-17.3); White Blood Count 11.5 T/CUMM (4-12)
[2017-07-14 19:30] LABS: Alanine Aminotransferase 19 U/L (13-56); Albumin 3.9 G/DL (3.4-5.0); Alkaline Phosphatase 91 U/L (45-117); Aspartate Amino Transferase 17 U/L (0-37); Calcium 10.3 MG/DL (8.5-10.1); Total Protein 7.8 G/DL (6.4-8.3)
[2017-07-14 19:31] LABS: Blood Urea Nitrogen 11 MG/DL (7-18); Glucose 118 MG/DL (74-106); INR 1.1; Osmolality,Calculated 280.3 MOS/KG (273-304); PT Patient Result 11.9 SECS; Potassium 4.4 MMOL/L (3.5-5.1); Sodium 141 MMOL/L (136-145); Troponin I Only 0.076 NG/ML (0.00-0.045)
[2017-07-14] MEDS ORDERED: CEFTAROLINE 600 MG VIAL IV ONE (20:06)
[2017-07-14] MEDS ORDERED: cefTRIAXone 1,000 MG in SODIUM CHLORIDE 0.9% 100 ML IV STA (20:28)
[2017-07-14 20:48] LABS: Apearance,Urine CLEAR (Clear); Bilirubin,Urine Negative (Negative); Blood, Urine Small mg/dL (Negative); Glucose,Urine (UA) Negative (Negative); Ketones,Urine Negative (Negative); Mucus,Urine Occasional /LPF (Occasional); Nitrite,Urine Negative (Negative); Protein,Urine Negative; RBC,Urine <1 /HPF (0-4); Squamous Epithelial Cell,Urine Occasional /HPF (0-10); Urine Color Straw (Yellow); Urine Specific Gravity 1.042 (1.001-1.035); Urine Urobilinogen < 2.0 EU/DL (0.2-1.0); WBC,Urine 1 /HPF (0-6)
[2017-07-14] MEDS ORDERED: cefTRIAXone 1,000 MG VIAL ONE (21:07)
[2017-07-14] MEDS ORDERED: ALBUTEROL/IPRATROPIUM 3 ML NEB RESP TX PRN (22:43)
[2017-07-14] MEDS ORDERED: NITROGLYCERIN SL 0.4 MG TABLET SL PRN (22:52)
[2017-07-15] MEDS: AZITHROMYCIN INJ 500 MG in SODIUM CHLORIDE 0.9% 250 ML IV SCH (00:40)
[2017-07-15] MEDS: ALBUTEROL/IPRATROPIUM 3 ML NEB RESP TX SCH ×4 (00:42→19:13)
[2017-07-15 01:41] LABS: Basophils % 0.2 % (0.0-0.8); Hematocrit 37.6 VOL% (35.7-47.0); Hemoglobin 12.7 GM/DL (12.0-16.0); Immature Granulocytes % 0.5 %; Immature Granulocytes Absolute 0.04 #; Lymphocytes # 0.3 10*3/uL (1.4-4.0); Lymphocytes % 3.8 % (21.3-54.2); Mean Corpuscular HGB Conc 33.8 GM/DL (32-36); Mean Corpuscular Hemoglobin 29 PG (27-34); Mean Corpuscular Volume 86.2 FL (87-102); Mean Platelet Volume 10.5 FL (9.6-12.0); Monocytes # 0.1 10*3/uL (0.11-0.8); Monocytes % 1.7 % (1.7-12.7); Neutrophils # 7.6 10*3/uL (1.4-7.4); Neutrophils % 93.8 % (38.7-73.9); Platelet Count 262 T/CUMM (130-400); Red Blood Count 4.36 MC/CUMM (3.8-5.5); Red Cell Distribution Width 16.1 % (9.3-17.3); White Blood Count 8.1 T/CUMM (4-12)
[2017-07-15 02:14] LABS: Calcium 9.9 MG/DL (8.5-10.1); Osmolality,Calculated 284.1 MOS/KG (273-304); Potassium 4.3 MMOL/L (3.5-5.1)
[2017-07-15 03:15] LABS: Band Neutrophils 1 % (0-10); Lymphocytes 2 % (20-55); Platelet Estimate Normal; Segmented Neutrophils 97 % (50-85); Total Cells Counted 100
[2017-07-15] MEDS: methylPREDNISolone SOD SUC 40 MG/1 ML VIAL IV SCH ×3 (05:41→21:35)
[2017-07-15] MEDS ORDERED: ASPIRIN 325 MG TABLET PO SCH (09:00)
[2017-07-15] MEDS: FUROSEMIDE 40 MG/4 ML VIAL IV SCH ×2 (09:08→16:18)
[2017-07-15] MEDS: CARVEDILOL 6.25 MG TABLET PO SCH ×2 (09:09→21:34)
[2017-07-15] MEDS: POTASSIUM CHLORIDE 20 MEQ TABLET PO SCH (09:09)
[2017-07-15] MEDS ORDERED: ASPIRIN EC 81 MG TABLET PO SCH (18:33)
[2017-07-15] MEDS ORDERED: ROSUVASTATIN 10 MG TABLET PO SCH (21:00)
[2017-07-15] MEDS: APIXABAN 5 MG TABLET PO SCH (21:34)
[2017-07-16] MEDS: AZITHROMYCIN INJ 500 MG in SODIUM CHLORIDE 0.9% 250 ML IV SCH (00:05)
[2017-07-16] MEDS: ALBUTEROL/IPRATROPIUM 3 ML NEB RESP TX SCH ×3 (00:05→13:10)
[2017-07-16] MEDS: methylPREDNISolone SOD SUC 40 MG/1 ML VIAL IV SCH ×2 (06:00→13:11)
[2017-07-16] MEDS ORDERED: LISINOPRIL 2.5 MG TABLET PO SCH (09:00)
[2017-07-16] MEDS: CARVEDILOL 6.25 MG TABLET PO SCH (09:09)
[2017-07-16] MEDS: APIXABAN 5 MG TABLET PO SCH (09:10)
[2017-07-16] MEDS: POTASSIUM CHLORIDE 20 MEQ TABLET PO SCH (09:10)
[2017-07-16] MEDS: FUROSEMIDE 40 MG/4 ML VIAL IV SCH (09:11)
[2017-07-16 10:38] LABS: Magnesium 2.1 MG/DL (1.8-2.4); Osmolality,Calculated 289.5 MOS/KG (273-304); Potassium 4.3 MMOL/L (3.5-5.1)
[2017-07-16 14:12] VITALS: BP 113/59
== END 2017-07-16 16:54 | disposition home or self-care (01) | DRG 291 ==
LOC: EDUNIT# → EDBD → N.ED 18:27 → N.EDINP 20:44 → N.TELEN 22:01
PROVIDERS: ADMIT Internal Medicine Geriatric Medicine; ATTEND Internal Medicine Geriatric Medicine

== ENCOUNTER 2017-08-29 12:21 | Inpatient (IN) ==
[2017-08-29] MEDS ORDERED: ALBUTEROL 2.5 MG/3 ML NEB RESP TX STA (12:49)
[2017-08-29 13:40] LABS: Basophils % 0.5 % (0.0-0.8); Hematocrit 39.9 VOL% (35.7-47.0); Immature Granulocytes % 0.2 %; Immature Granulocytes Absolute 0.01 #; Lymphocytes # 1.1 10*3/uL (1.4-4.0); Lymphocytes % 25.9 % (21.3-54.2); Mean Corpuscular HGB Conc 32.6 GM/DL (32-36); Mean Corpuscular Hemoglobin 28 PG (27-34); Mean Corpuscular Volume 85.8 FL (87-102); Monocytes # 0.5 10*3/uL (0.11-0.8); Monocytes % 12.6 % (1.7-12.7); Neutrophils # 2.6 10*3/uL (1.4-7.4); Neutrophils % 60.8 % (38.7-73.9); Platelet Count 236 T/CUMM (130-400); Red Blood Count 4.65 MC/CUMM (3.8-5.5); Red Cell Distribution Width 15.5 % (9.3-17.3); White Blood Count 4.2 T/CUMM (4-12)
[2017-08-29 13:50] LABS: INR 1.3; PT Patient Result 13.4 SECS; Partial Thromboplastin Time 31.7 SECS (0-40)
[2017-08-29 14:01] LABS: Albumin 3.3 G/DL (3.4-5.0); Bilirubin,Total 0.7 MG/DL (0.2-1.0); Calcium 9.7 MG/DL (8.5-10.1); Magnesium 2.2 MG/DL (1.8-2.4); Potassium 3.9 MMOL/L (3.5-5.1); Troponin I Only 0.069 NG/ML (0.00-0.045)
[2017-08-29 14:05] LABS: Lymphocytes 29 % (20-55); Segmented Neutrophils 62 % (50-85); Total Cells Counted 100
[2017-08-29 14:06] LABS: Burr Cells Few; Elliptocytes Few; Platelet Estimate Adequate
[2017-08-29] MEDS ORDERED: FUROSEMIDE 40 MG/4 ML VIAL IV STA (14:26)
[2017-08-29 14:36] LABS: Apearance,Urine Slightly Hazy (Clear); Bilirubin,Urine Negative (Negative); Blood, Urine Small mg/dL (Negative); Glucose,Urine (UA) Negative (Negative); Ketones,Urine 20 mg/dL (Negative); Mucus,Urine Occasional /LPF (Occasional); Nitrite,Urine Negative (Negative); Protein,Urine 30 MG/DL; RBC,Urine 1 /HPF (0-4); Squamous Epithelial Cell,Urine Occasional /HPF (0-10); Urine Color Yellow (Yellow); Urine Specific Gravity 1.017 (1.001-1.035); WBC,Urine 4 /HPF (0-6)
[2017-08-29 14:42] LABS: Barbiturates Screen,Urine Negative (Negative); Benzodiazepines Screen,Urine Negative (Negative); Cannabinoid Screen,Urine Negative (Negative); Opiate Screen,Urine Negative (Negative); Phencyclidine Screen,Urine Negative (Negative)
[2017-08-29] MEDS ORDERED: FUROSEMIDE 100 MG/10 ML VIAL ONE (15:22)
[2017-08-29] MEDS ORDERED: ONDANSETRON 4 MG/2 ML VIAL IV PRN (16:05)
[2017-08-29] MEDS ORDERED: ACETAMINOPHEN 325 MG TABLET PO PRN (16:05)
[2017-08-29] MEDS ORDERED: ALBUTEROL 2.5 MG/3 ML NEB RESP TX PRN (17:00)
[2017-08-29] MEDS: CARVEDILOL 6.25 MG TABLET PO SCH (22:23)
[2017-08-29] MEDS: APIXABAN 5 MG TABLET PO SCH (22:23)
[2017-08-29] MEDS: ROSUVASTATIN 10 MG TABLET PO SCH (22:23)
[2017-08-30 06:48] LABS: Basophils % 0.3 % (0.0-0.8); Hematocrit 40.7 VOL% (35.7-47.0); Hemoglobin 13.3 GM/DL (12.0-16.0); Immature Granulocytes % 0.3 %; Immature Granulocytes Absolute 0.01 #; Mean Corpuscular HGB Conc 32.7 GM/DL (32-36); Mean Corpuscular Hemoglobin 28 PG (27-34); Mean Corpuscular Volume 84.1 FL (87-102); Monocytes # 0.4 10*3/uL (0.11-0.8); Monocytes % 12.5 % (1.7-12.7); Neutrophils % 57.9 % (38.7-73.9); Platelet Count 234 T/CUMM (130-400); Red Blood Count 4.84 MC/CUMM (3.8-5.5); Red Cell Distribution Width 15.2 % (9.3-17.3); White Blood Count 3.5 T/CUMM (4-12)
[2017-08-30 07:39] LABS: Calcium 9.7 MG/DL (8.5-10.1); Osmolality,Calculated 274.7 MOS/KG (273-304); Potassium 3.6 MMOL/L (3.5-5.1)
[2017-08-30] MEDS ORDERED: FUROSEMIDE 40 MG/4 ML VIAL IV SCH (08:00)
[2017-08-30] MEDS: ASPIRIN EC 81 MG TABLET PO SCH (08:41)
[2017-08-30] MEDS: CARVEDILOL 6.25 MG TABLET PO SCH (08:41)
[2017-08-30] MEDS: AZITHROMYCIN 250 MG TABLET PO SCH (08:41)
[2017-08-30] MEDS: APIXABAN 5 MG TABLET PO SCH ×2 (08:41→21:05)
[2017-08-30] MEDS: POTASSIUM CHLORIDE 20 MEQ TABLET PO SCH (08:41)
[2017-08-30] MEDS: PANTOPRAZOLE 40 MG TABLET PO SCH (08:41)
[2017-08-30] MEDS ORDERED: FUROSEMIDE 40 MG TABLET PO ONE (12:00)
[2017-08-30] MEDS: predniSONE 20 MG TABLET PO SCH (12:00)
[2017-08-30] MEDS: ALBUTEROL 2.5 MG/3 ML NEB RESP TX SCH ×2 (13:00→19:31)
[2017-08-30] MEDS ORDERED: ALBUTEROL 2.5 MG/3 ML NEB RESP TX PRN (15:00)
[2017-08-30] MEDS: FUROSEMIDE 40 MG TABLET PO SCH (15:52)
[2017-08-30] MEDS: CARVEDILOL 3.125 MG TABLET PO SCH ×2 (17:32→17:34)
[2017-08-30] MEDS: ROSUVASTATIN 10 MG TABLET PO SCH (21:04)
[2017-08-30] MEDS: MEMANTINE 5 MG TABLET PO SCH (21:05)
[2017-08-31 05:32] LABS: Basophils % 0.7 % (0.0-0.8); Hematocrit 43.4 VOL% (35.7-47.0); Hemoglobin 13.6 GM/DL (12.0-16.0); Immature Granulocytes % 0.4 %; Immature Granulocytes Absolute 0.01 #; Lymphocytes # 1.3 10*3/uL (1.4-4.0); Lymphocytes % 46.5 % (21.3-54.2); Mean Corpuscular HGB Conc 31.3 GM/DL (32-36); Mean Corpuscular Hemoglobin 28 PG (27-34); Mean Corpuscular Volume 88.6 FL (87-102); Mean Platelet Volume 11.1 FL (9.6-12.0); Monocytes # 0.3 10*3/uL (0.11-0.8); Monocytes % 10.3 % (1.7-12.7); Neutrophils # 1.1 10*3/uL (1.4-7.4); Neutrophils % 42.1 % (38.7-73.9); Platelet Count 242 T/CUMM (130-400); Red Cell Distribution Width 15.5 % (9.3-17.3); White Blood Count 2.7 T/CUMM (4-12)
[2017-08-31 05:57] LABS: Acanthocytes 1+; Hypochromasia 1+; Lymphocytes 43 % (20-55); Segmented Neutrophils 50 % (50-85); Total Cells Counted 100
[2017-08-31 05:58] LABS: Burr Cells Few; Elliptocytes 1+; Microcytosis 1+; Target Cells Slight
[2017-08-31 05:59] LABS: Platelet Estimate Normal; Poikilocytosis 1+
[2017-08-31 06:04] LABS: Calcium 9.6 MG/DL (8.5-10.1); Osmolality,Calculated 275.7 MOS/KG (273-304); Potassium 4.4 MMOL/L (3.5-5.1)
[2017-08-31] MEDS: ALBUTEROL 2.5 MG/3 ML NEB RESP TX SCH ×2 (07:58→15:27)
[2017-08-31] MEDS: CARVEDILOL 3.125 MG TABLET PO SCH ×2 (08:44→17:43)
[2017-08-31] MEDS: AZITHROMYCIN 250 MG TABLET PO SCH (08:45)
[2017-08-31] MEDS: APIXABAN 5 MG TABLET PO SCH (08:45)
[2017-08-31] MEDS: ASPIRIN EC 81 MG TABLET PO SCH (08:45)
[2017-08-31] MEDS: POTASSIUM CHLORIDE 20 MEQ TABLET PO SCH (08:45)
[2017-08-31] MEDS: MEMANTINE 5 MG TABLET PO SCH (08:45)
[2017-08-31] MEDS: FUROSEMIDE 40 MG TABLET PO SCH ×2 (08:45→16:45)
[2017-08-31] MEDS: PANTOPRAZOLE 40 MG TABLET PO SCH (08:45)
[2017-08-31] MEDS: predniSONE 20 MG TABLET PO SCH (08:46)
[2017-08-31 17:45] VITALS: BP 121/66
== END 2017-08-31 17:45 | disposition home or self-care (01) | DRG 292 ==
LOC: EDUNIT# → EDBD → N.ED 12:21 → N.EDINP 15:31 → N.5E 19:33
PROVIDERS: ADMIT Internal Medicine; ATTEND Internal Medicine

== ENCOUNTER 2018-03-19 15:39 | Inpatient (IN) ==
[2018-03-19 16:33] LABS: Basophils % 0.4 % (0.0-0.8); Eosinophils % 0.3 % (0.00-10.9); Hematocrit 42.3 VOL% (35.7-47.0); Hemoglobin 13.9 GM/DL (12.0-16.0); Immature Granulocytes % 0.4 %; Immature Granulocytes Absolute 0.04 #; Lymphocytes % 22.8 % (21.3-54.2); Mean Corpuscular HGB Conc 32.9 GM/DL (32-36); Mean Corpuscular Hemoglobin 28 PG (27-34); Mean Corpuscular Volume 84.6 FL (87-102); Mean Platelet Volume 10.7 FL (9.6-12.0); Monocytes % 10.8 % (1.7-12.7); Neutrophils # 5.8 10*3/uL (1.4-7.4); Neutrophils % 65.3 % (38.7-73.9); Platelet Count 211 T/CUMM (130-400); Red Cell Distribution Width 18.8 % (9.3-17.3); White Blood Count 8.9 T/CUMM (4-12)
[2018-03-19 16:54] LABS: Albumin 3.6 G/DL (3.4-5.0); Calcium 10.5 MG/DL (8.5-10.1); Osmolality,Calculated 278.5 MOS/KG (273-304); Potassium 4.8 MMOL/L (3.5-5.1); Total Protein 7.1 G/DL (6.4-8.3)
[2018-03-19] MEDS ORDERED: HEPARIN DRIP 25,000 UNITS/500 ML PREMIX IV ONE (19:17)
[2018-03-19] MEDS ORDERED: HEPARIN DRIP 25,000 UNITS/500 ML PREMIX IV SCH (19:30)
[2018-03-19] MEDS ORDERED: ONDANSETRON 4 MG/2 ML VIAL IV PRN (19:53)
[2018-03-19] MEDS ORDERED: ACETAMINOPHEN 325 MG TABLET PO PRN (19:53)
[2018-03-19] MEDS ORDERED: DOCUSATE SODIUM 100 MG CAPSULE PO PRN (19:53)
[2018-03-19 20:23] LABS: ABG Base Excess -1.5 MMOL/L (-2.5-2.5); ABG HCO3 22.9 MMOL/L (20-26); ABG PCO2 29.6 MM HG (35-48); ABG PH 7.462 (7.35-7.45); ABG PO2 56.1 MM HG (80-95); ABG TCO2 18.3 MMOL/L (23-27); Allen Test Positive; Pt O2 Delivery Device Room Air
[2018-03-19] MEDS: APIXABAN 5 MG TABLET PO SCH (22:07)
[2018-03-19] MEDS: cefTRIAXone 2,000 MG in SYRINGE 1 EACH IV SCH (22:07)
[2018-03-19] MEDS: MEMANTINE 5 MG TABLET PO SCH (22:07)
[2018-03-19] MEDS: ROSUVASTATIN 10 MG TABLET PO SCH (22:07)
[2018-03-19] MEDS: ACETYLCYSTEINE 600 MG CAPSULE PO SCH (22:07)
[2018-03-19] MEDS ORDERED: ALBUTEROL/IPRATROPIUM 3 ML NEB RESP TX PRN (22:22)
[2018-03-19] MEDS: ALBUTEROL/IPRATROPIUM 3 ML NEB RESP TX SCH (23:25)
[2018-03-19] MEDS: AZITHROMYCIN INJ 500 MG in SODIUM CHLORIDE 0.9% 250 ML IV SCH (23:30)
[2018-03-20 01:56] LABS: Basophils % 0.5 % (0.0-0.8); Eosinophils % 0.2 % (0.00-10.9); Hematocrit 40.5 VOL% (35.7-47.0); Hemoglobin 13.4 GM/DL (12.0-16.0); Immature Granulocytes % 0.2 %; Immature Granulocytes Absolute 0.02 #; Lymphocytes # 1.7 10*3/uL (1.4-4.0); Lymphocytes % 21.3 % (21.3-54.2); Mean Corpuscular HGB Conc 33.1 GM/DL (32-36); Mean Corpuscular Hemoglobin 28 PG (27-34); Mean Platelet Volume 10.4 FL (9.6-12.0); Monocytes # 0.9 10*3/uL (0.11-0.8); Monocytes % 11.6 % (1.7-12.7); Neutrophils # 5.3 10*3/uL (1.4-7.4); Neutrophils % 66.2 % (38.7-73.9); Platelet Count 271 T/CUMM (130-400); Red Blood Count 4.82 MC/CUMM (3.8-5.5); Red Cell Distribution Width 17.6 % (9.3-17.3); White Blood Count 8.1 T/CUMM (4-12)
[2018-03-20 02:28] LABS: Calcium 10.2 MG/DL (8.5-10.1); Potassium 3.7 MMOL/L (3.5-5.1); Thyroid Stimulating Hormone 4.02 uIU/ml (0.358-3.74)
[2018-03-20] MEDS ORDERED: FUROSEMIDE 40 MG/4 ML VIAL IV ONE (03:00)
[2018-03-20] MEDS: ALBUTEROL/IPRATROPIUM 3 ML NEB RESP TX SCH ×3 (07:41→20:21)
[2018-03-20 07:58] LABS: Apearance,Urine CLOUDY (Clear); Bilirubin,Urine Negative (Negative); Blood, Urine Small mg/dL (Negative); Glucose,Urine (UA) Negative (Negative); Hyaline Casts,Urine 14 /LPF (0-3); Ketones,Urine 5 mg/dL (Negative); Mucus,Urine Few /LPF (Occasional); Nitrite,Urine Negative (Negative); Protein,Urine 100 MG/DL; Urine Color Amber (Yellow); Urine Specific Gravity 1.014 (1.001-1.035); WBC,Urine 4 /HPF (0-6)
[2018-03-20] MEDS: APIXABAN 5 MG TABLET PO SCH ×2 (08:28→20:32)
[2018-03-20] MEDS: POTASSIUM CHLORIDE 20 MEQ TABLET PO SCH (08:28)
[2018-03-20] MEDS: ACETYLCYSTEINE 600 MG CAPSULE PO SCH ×2 (08:28→20:30)
[2018-03-20] MEDS: FUROSEMIDE 40 MG/4 ML VIAL IV SCH (08:28)
[2018-03-20] MEDS: ASPIRIN EC 81 MG TABLET PO SCH (08:29)
[2018-03-20] MEDS: PANTOPRAZOLE 40 MG TABLET PO SCH (08:29)
[2018-03-20] MEDS: MEMANTINE 5 MG TABLET PO SCH ×2 (08:29→20:31)
[2018-03-20] MEDS: CARVEDILOL 3.125 MG TABLET PO SCH ×2 (09:37→20:32)
[2018-03-20] MEDS: SPIRONOLACTONE 25 MG TABLET PO SCH (09:37)
[2018-03-20 10:01] LABS: ABG Base Excess -3.2 MMOL/L (-2.5-2.5); ABG HCO3 21.7 MMOL/L (20-26); ABG Oxygen Saturation 96.8 % (95-100); ABG PH 7.479 (7.35-7.45); ABG PO2 88.9 MM HG (80-95); ABG TCO2 15.9 MMOL/L (23-27); Allen Test Positive
[2018-03-20] MEDS: ROSUVASTATIN 10 MG TABLET PO SCH (20:32)
[2018-03-20] MEDS: cefTRIAXone 2,000 MG in SYRINGE 1 EACH IV SCH (20:33)
[2018-03-20] MEDS: SACUBITRIL/VALSARTAN 49-51 MG TABLET PO SCH (20:37)
[2018-03-20] MEDS: AZITHROMYCIN INJ 500 MG in SODIUM CHLORIDE 0.9% 250 ML IV SCH (23:56)
[2018-03-21] MEDS: ALBUTEROL/IPRATROPIUM 3 ML NEB RESP TX SCH ×4 (02:11→20:33)
[2018-03-21 06:29] LABS: Basophils # 0.1 10*3/uL (0.0-0.2); Basophils % 0.7 % (0.0-0.8); Eosinophils # 0.1 10*3/uL (0.0-0.87); Hemoglobin 13.1 GM/DL (12.0-16.0); Immature Granulocytes % 0.4 %; Immature Granulocytes Absolute 0.03 #; Lymphocytes # 1.7 10*3/uL (1.4-4.0); Lymphocytes % 22.8 % (21.3-54.2); Mean Corpuscular HGB Conc 33.6 GM/DL (32-36); Mean Corpuscular Hemoglobin 27 PG (27-34); Mean Corpuscular Volume 80.9 FL (87-102); Mean Platelet Volume 11.5 FL (9.6-12.0); Monocytes # 0.7 10*3/uL (0.11-0.8); Monocytes % 9.4 % (1.7-12.7); NRBC # 0.03 10*3/uL; Neutrophils % 65.7 % (38.7-73.9); Platelet Count 313 T/CUMM (130-400); Red Blood Count 4.82 MC/CUMM (3.8-5.5); Red Cell Distribution Width 17.9 % (9.3-17.3); White Blood Count 7.6 T/CUMM (4-12)
[2018-03-21 06:42] LABS: Osmolality,Calculated 280.5 MOS/KG (273-304); Potassium 3.7 MMOL/L (3.5-5.1)
[2018-03-21] MEDS: SPIRONOLACTONE 25 MG TABLET PO SCH (10:34)
[2018-03-21] MEDS: APIXABAN 5 MG TABLET PO SCH ×2 (10:35→21:49)
[2018-03-21] MEDS: ACETYLCYSTEINE 600 MG CAPSULE PO SCH ×2 (10:35→21:53)
[2018-03-21] MEDS: CARVEDILOL 3.125 MG TABLET PO SCH ×2 (10:35→21:49)
[2018-03-21] MEDS: SACUBITRIL/VALSARTAN 49-51 MG TABLET PO SCH ×2 (10:35→21:48)
[2018-03-21] MEDS: ASPIRIN EC 81 MG TABLET PO SCH (10:36)
[2018-03-21] MEDS: PANTOPRAZOLE 40 MG TABLET PO SCH (10:36)
[2018-03-21] MEDS: MEMANTINE 5 MG TABLET PO SCH ×2 (10:36→21:49)
[2018-03-21] MEDS: POTASSIUM CHLORIDE 20 MEQ TABLET PO SCH (10:36)
[2018-03-21] MEDS: FUROSEMIDE 40 MG/4 ML VIAL IV SCH (12:10)
[2018-03-21] MEDS: cefTRIAXone 2,000 MG in SYRINGE 1 EACH IV SCH (21:47)
[2018-03-21] MEDS: ROSUVASTATIN 10 MG TABLET PO SCH (21:48)
[2018-03-22] MEDS: AZITHROMYCIN INJ 500 MG in SODIUM CHLORIDE 0.9% 250 ML IV SCH (00:35)
[2018-03-22] MEDS: ALBUTEROL/IPRATROPIUM 3 ML NEB RESP TX SCH ×3 (01:08→14:15)
[2018-03-22 06:15] LABS: Basophils % 0.5 % (0.0-0.8); Eosinophils # 0.1 10*3/uL (0.0-0.87); Eosinophils % 1.4 % (0.00-10.9); Hematocrit 41.2 VOL% (35.7-47.0); Immature Granulocytes % 0.3 %; Immature Granulocytes Absolute 0.02 #; Lymphocytes # 1.4 10*3/uL (1.4-4.0); Mean Corpuscular Hemoglobin 28 PG (27-34); Mean Corpuscular Volume 81.1 FL (87-102); Mean Platelet Volume 10.8 FL (9.6-12.0); Monocytes # 0.7 10*3/uL (0.11-0.8); Monocytes % 9.1 % (1.7-12.7); NRBC # 0.02 10*3/uL; Neutrophils # 5.5 10*3/uL (1.4-7.4); Neutrophils % 70.7 % (38.7-73.9); Platelet Count 339 T/CUMM (130-400); Red Blood Count 5.08 MC/CUMM (3.8-5.5); Red Cell Distribution Width 18.3 % (9.3-17.3); White Blood Count 7.8 T/CUMM (4-12)
[2018-03-22 06:44] LABS: Calcium 9.5 MG/DL (8.5-10.1); Osmolality,Calculated 277.7 MOS/KG (273-304); Potassium 3.9 MMOL/L (3.5-5.1)
[2018-03-22] MEDS: MEMANTINE 5 MG TABLET PO SCH (10:04)
[2018-03-22] MEDS: PANTOPRAZOLE 40 MG TABLET PO SCH (10:04)
[2018-03-22] MEDS: CARVEDILOL 3.125 MG TABLET PO SCH (10:04)
[2018-03-22] MEDS: POTASSIUM CHLORIDE 20 MEQ TABLET PO SCH (10:04)
[2018-03-22] MEDS: ACETYLCYSTEINE 600 MG CAPSULE PO SCH (10:04)
[2018-03-22] MEDS: APIXABAN 5 MG TABLET PO SCH (10:04)
[2018-03-22] MEDS: SPIRONOLACTONE 25 MG TABLET PO SCH (10:04)
[2018-03-22] MEDS: SACUBITRIL/VALSARTAN 49-51 MG TABLET PO SCH (10:04)
[2018-03-22] MEDS: ASPIRIN EC 81 MG TABLET PO SCH (10:05)
[2018-03-22] MEDS: FUROSEMIDE 40 MG/4 ML VIAL IV SCH (10:05)
[2018-03-22 16:37] VITALS: BP 100/63
== END 2018-03-22 18:27 | disposition home health service (06) | DRG 292 ==
LOC: N.ED 15:39 → N.EDINP 18:26 → N.5E 19:27 → N.TELEN 03-20 09:10
PROVIDERS: ADMIT Hospitalist; ATTEND Hospitalist